=== PATIENT | male | born 1940 | race Caucasian/White ===

== ENCOUNTER 2022-07-08 22:46 | Inpatient (IN) | payer MEDICARE, SELFPAY ==
[2022-07-08 22:19] VITALS: BMI 21.0
[2022-07-08 22:38] VITALS: BP 95/59; PULSE 112; RESP 16; TEMP 36.8; O2SAT 95
--- NOTE | 2022-07-08 22:51 | HP.PCM.HOS_ITS ---
HPI - General General Date of Admission: 07/08/22 Date of Service: 07/08/22 Chief Complaint: Fatigue HPI Narrative LEO RUSSELL, is a 82 M who presented to hospital in [facility] on 07/08/2022 with a chief complaint of fatigue. Patient is currently residing at [facility] which is a custodial facility in the [facility]. 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 He had a mini laparotomy with a jejunostomy tube placed on 03/02/2022 and receives all of his medication and nutrition via PEG at this time. Patient reports he is lost about 50 pounds since he was diagnosed. Patient had been undergoing external beam radiation therapy. He was evaluated by surgery and is not a candidate for surgery. He did receive concurrent chemotherapy with carbo and Taxol. He presented with worsening fatigue and was found to be in A-fib with RVR. Heart rates were approximately 100-130 upon presentation at outside hospital. He reports that his fatigue has been worse over the 2 to 3 days prior to presentation. Family reports he has been slowly becoming more debilitated. I did speak to his children and they reported that they understand that this is not going to be curable and would really prefer that he pursue hospice however they indicate that both he and his mother would like to continue pursuing aggressive therapy at this time. They report he was deemed not to be a surgical candidate. He evidently had a low hemoglobin in May which required transfusion with improvement starting with a hemoglobin of 6.9 and his hemoglobin improved to 8. His last hemoglobin drawn was on June 17, 2022 and found to be 10.3. He has chronic hypotension for which he takes midodrine and typically runs in the 80s to 90 systolic. Labs on presentation showed leukopenia which was chronic at 1.7, acute on chronic anemia with a hemoglobin of 7.1, and normal platelets. His chemistry panel was overall unremarkable other than some mild hyper natremia with a sodium of 147 and hypokalemia with a potassium of 3.1 chest x-ray was unremarkable. An EKG was consistent with A-fib with RVR. He had no known history of A-fib with RVR. Request for transfer was made because they have no cardiology coverage on the weekend at [facility] and the hospital service is not able to manage A- fib without assistance of cardiology per discussion with the emergency department physician. Family also reports that the patient's been having some difficulty urinating. An ultrasound was evidently done at the skilled facility which she resides and family reported a mass was found. Follow-up imaging has been ordered but not yet been performed. The patient does indicate he is not having difficulty urinating. No UA has been done recently as far as I can tell. [facility] Medical History Cancer of distal third of esophagus Cataract Chronic leukopenia Constipation COVID-19 DDD (degenerative disc disease) Dysphagia Esophageal adenocarcinoma Jejunostomy present Pneumonia Home Medications lorazepam 0.5 mg tablet 0.5 mg PO QHS Check with primary doctor 04/14/22 [History Last Taken Unknown] mirtazapine 15 mg tablet 15 mg PO DAILY 04/14/22 [History Last Taken Unknown] ondansetron HCl 8 mg tablet 8 mg PO Q8H 04/14/22 [History Last Taken Unknown] oxycodone 5 mg capsule 5 mg PO Q8H PRN 04/14/22 [History Last Taken Unknown] pantoprazole 40 mg tablet,delayed release 40 mg PO DAILY 04/14/22 [History Last Taken Unknown] polyethylene glycol 3350 17 gram/dose oral powder (Miralax) 4 g PO DAILY 04/14/22 [History Last Taken Unknown] thiamine HCl (vitamin B1) 100 mg tablet 100 mg PO DAILY 04/14/22 [History Last Taken Unknown] melatonin 5 mg capsule 5 mg PO PRN PRN Sleep 04/19/22 [History Last Taken Unknown] famotidine 40 mg/5 mL (8 mg/mL) oral suspension 5 ml feeding tube DAILY Check with primary doctor 07/08/22 [History Last Taken Unknown] lorazepam 0.5 mg tablet 0.5 mg PO PRN PRN Anxiety 07/08/22 [History Last Taken Unknown] metoclopramide HCl 10 mg tablet 10 mg feeding tube 3XD Check with primary doctor 07/08/22 [History Last Taken Unknown] midodrine 5 mg tablet 5 mg feeding tube 3XD Check with primary doctor 07/08/22 [History Last Taken Unknown] tamsulosin 0.4 mg capsule 0.4 mg PO DAILY Check with primary doctor 07/08/22 [History Last Taken Unknown] trazodone 50 mg tablet 5 mg feeding tube QHS Check with primary doctor 07/08/22 [History Last Taken Unknown] Allergy/AdvReac Type Severity Reaction Status Date / Time No Known Allergies Allergy Unverified 06/14/22 09:22 Family History Sister , age 40 Cancer colorectal Father Brain tumor Surgical History H/O laminectomy History of hernia surgery History of partial colectomy Social History (Updated 07/09/22 @ 01:[address] Paula Whitman DO) housing: care home number of children: 3 Smoking Status: Former smoker alcohol intake: never substance use type: does not use ROS Constitutional Constitutional: Reports change in weight, fatigue, malaise and weakness; Denies anorexia, chills, fever(s), night sweats or other Eyes Eyes: Denies blurry vision, change in eye color, change in vision, discharge from eye(s), double vision, erythema, eye pain, loss of vision or other ENT HEENT: Reports abnormal hearing and hearing loss; Denies dysphagia, ear pain, epistaxis, headache(s), nasal congestion, nasal discharge, post nasal drip, sinus pressure, sore throat or other Cardiovascular Cardiovascular: Denies chest pain, claudication, dyspnea on exertion, edema, lightheadedness, orthopnea, palpitations, paroxysmal nocturnal dyspnea, rapid heart rate, syncope or other Respiratory/Chest Respiratory/Chest: Denies cough, dyspnea, excessive phlegm production, hemoptysis, productive cough, shortness of breath at rest, shortness of breath with exertion, wheezing or other Gastrointestinal Gastrointestinal: Reports abdominal pain and other Details: Patient reports epigastric discomfort intermittently Genitourinary Genitourinary: Reports difficulty urinating Musculoskeletal Musculoskeletal: Denies arthralgias, back pain, joint pain, joint stiffness, joint swelling, myalgias, neck pain or other Neurologic Neurologic: Denies abnormal gait, abnormal speech, confusion, disequilibrium, dizziness, focal weakness, headache(s), numbness, paresthesias, seizure-like activity, seizures, syncope, tingling, tremor(s) or other Psychiatric Psychiatric: Reports anxiety and depression; Denies homicidal ideation, suicidal ideation or other Endocrine Endocrinology: Denies change in body appearance, cold intolerance, excessive sweating, heat intolerance, polydipsia, polyuria or other Hematologic/Lymphatic Hematologic/Lymphatic: Denies anemia, easy bleeding, easy bruising, lymphadenopathy or other Allergic/Immunologic Allergic/Immunologic: Denies rhinitis, hives, eczemia, asthma or other Vital Signs Vital Signs Vital Signs: 07/08/22 22:38 Temperature 98.2 F Temperature Source Oral Pulse Rate 112 H Respiratory Rate 16 Blood Pressure 95/59 L Blood Pressure Mean 71 Blood Pressure Source Monitor Blood Pressure Position Semi-Fowlers Pulse Ox 95 Oxygen Delivery Method Room Air Weight Weight: 66.5 kg Body Mass Index (BMI) 21.0 Physical Exam Const alert, oriented x3, no apparent distress and average body habitus; Negative for healthy appearing or well nourished Constitutional Narrative: Elderly white male, lying in bed, daughter and son at bedside, appears comforta ble at this time, nursing at bedside, nontoxic General Appearance: cooperative HEENT normocephalic, head/scalp atraumatic and moist oral mucous membranes HEENT Narrative: Dentition is fair, Mallampati is 2, no thrush, mild hearing loss Eyes PERRL and EOMs intact bilaterally; Negative for conjunctivae normal Eyes Narrative: Conjunctiva are pale bilaterally no scleral icterus Neck no lymphadenopathy and supple Neck Narrative: Trachea midline, no thyroid enlargement Resp normal respiratory effort, no retractions, no use of accessory muscles and clear to auscultation bilaterally Resp Narrative: Diffusely diminished but clear Auscultation: Negative for rales, rhonchi or wheezes Cardio S1 normal heart sound, S2 normal heart sound, no murmurs, no rub, no gallops and no clicks; Negative for regular rate or regular rhythm Cardio Narrative: Mild tachycardia with irregularly irregular rhythm GI normal to inspection, nondistended, normoactive bowel sounds and soft to palpation GI Narrative: Mild tenderness in epigastrium, PEG tube in place with drainage noted under PEG and slight erythema with some mild skin maceration Extremity no clubbing, cyanosis or edema Extremity Narrative: 2+ pedal pulses Skin skin turgor normal, no jaundice, no petechiae and no mottling Skin Narrative: Skin is pale Neuro oriented x3, CN's II-XII intact bilaterally, moves all extremities and no focal motor deficits Neuro Narrative: Severe generalized weakness Speech: speech normal Psych Psych Narrative: Affect is somewhat flat, eye contact is good Assessment & Plan Assessment/Plan (1) Atrial fibrillation with RVR: (2) Fatigue: (3) Acute on chronic anemia: (4) Hypokalemia: PLAN: Plan New onset A-fib with RVR -Check TSH -Check echocardiogram -Cycle cardiac enzymes -Rates seem to be 100-120 -Blood pressures are chronically on the lower side and patient is on midodrine 5 mg 3 times daily will increase to 10 mg 3 times daily -Start metoprolol 25 mg p.o. twice daily -No anticoagulation at this point due to large esophageal mass and possible bleeding with decreased hemoglobin -I believe overall the risk of starting anticoagulation with his large esophageal mask and recent radiation outweighs the benefit for stroke prophylaxis at this point and I discussed this both with the patient and the family Acute on chronic anemia -Unfortunately patient received 1 unit of packed red blood cells prior to transfer so obtaining iron studies at this point would be moot -Cycle hemoglobin -Check guaiac if patient produces stool -Start Protonix 40 mg IV twice daily -N.p.o. and no tube feed--> okay for enteral medications -Consult GI for possible scope to see if he can identify any areas of bleeding -Family does indicate that GI will not be able to traverse the tumor as it is quite significant Hypokalemia -Patient was repleted prior to transfer -Repeat lab in a.m. -Check magnesium level Dysuria/urinary retention -Family reports abnormal ultrasound performed as an outpatient at the nursing facility -Check CT of the abdomen pelvis as this could change goals of care -Check UA Generalized weakness/fatigue -Patient has been becoming weaker over time per family however is acute fatigue over the last 2 to 3 days could be multifactorial related to A-fib with RVR and his acute anemia Stage IIIb distal esophageal adenocarcinoma -Patient following with radiation oncology and medical oncology -Deemed not an appropriate surgical candidate -J tube in place for enteral feeds -N.p.o. for right now until we can ascertain what GI will do with regards to EGD tomorrow -Continue Reglan Chronic hypotension -Continue midodrine but increase to 10 mg 3 times daily with anticipation of some dropping due to use of low-dose metoprolol -Continue to monitor -Systolics appear to run between 80 and 100 chronically Anxiety/depression/insomnia -Continue home medications via PEG History of tobacco abuse -Remote -Encourage ongoing cessation DVT prophylaxis -Contraindicated with concern for bleeding -SCDs CODE STATUS -Full code as verified at the time of admission Charges/Coding Visit Charges Inpatient E&M: 18407 Init Hosp L3
--- NOTE | 2022-07-08 23:36 | ECHOD_ITS ---
Reason For Study: Afib, Aflutter Procedure This was a 2D Doppler, Color Flow transthoracic echocardiogram. Exam performed portable in patient room. Left Ventricle Normal size and thickness. The left ventricular ejection fraction is 60 %. Unable to assess diastolic dysfunction due to arrhythmia. Right Ventricle Normal right ventricle. Atria The left atrium is mildly enlarged. The right atrium is mildly enlarged. Mitral Valve Mild focal mitral valve calcification of the posterior leaflet. Tricuspid Valve Mild tricuspid valve insufficiency. Normal pulmonary artery pressure. Aortic Valve Aortic sclerosis, no stenosis. Mild (1+) aortic valve insufficiency. Pulmonic Valve The pulmonic valve is not well visualized. Great Vessels Normal sized aortic root. Pericardium/Pleural No pericardial effusion. MMode/2D Measurements & Calculations LVIDd: 4.7 cm IVSd: 1.00 cm Ao root diam: 3.2 cm LVIDs: 3.3 cm LVPWd: 1.2 cm RVDd: 3.7 cm FS: 30.9 % LAV(MOD-bp): 58.1 ml LVAd ap4: 21.3 cm2 SV(MOD-sp4): 30.7 ml LAV(MOD-bp) Indexed: 31.7 ml/m2 LVLd ap4: 7.1 cm LAV(MOD-sp2): 44.6 ml EDV(MOD-sp4): 54.2 ml LAV(MOD-sp4): 65.2 ml EDV(sp4-el): 53.7 ml LVAs ap4: 12.7 cm2 LVLs ap4: 6.3 cm ESV(MOD-sp4): 23.5 ml ESV(sp4-el): 21.8 ml EF(MOD-sp4): 56.6 % EF(sp4-el): 59.4 % SV(sp4-el): 31.9 ml LA A4 area: 22.7 cm2 LA dimension(2D): 4.0 cm RA A4 area: 17.3 cm2 Doppler Measurements & Calculations MV E max rj: 98.6 cm/sec Ao V2 max: 133.2 cm/sec LV V1 max: 102.8 cm/sec Ao max P.1 mmHg LV V1 max P.2 mmHg Ao V2 mean: 93.6 cm/sec Ao mean P.0 mmHg Ao V2 VTI: 20.1 cm PA V2 max: 86.8 cm/sec TR max rj: 239.8 cm/sec TR max P.0 mmHg ECHO/Echo Complete Interpretation Summary The left ventricular ejection fraction is 60 %. Unable to assess diastolic dysfunction due to arrhythmia. The left atrium is mildly enlarged. The right atrium is mildly enlarged. Mild tricuspid valve insufficiency. Aortic sclerosis, no stenosis. Mild (1+) aortic valve insufficiency. Ordering Physician: Paula Whitman Performed By: RoofGina RDCS, RVT
[2022-07-08 23:57] VITALS: BP 105/58; PULSE 113; RESP 16; O2SAT 94
[2022-07-09] VITALS (10 sets, daily range): BP systolic 89–126; BP diastolic 57–83; PULSE 105–121; RESP 17–21; TEMP 36.7–36.9; O2SAT 95–100
[2022-07-09] MEDS: 0.9% Saline Lock 10 ML Syringe IV ×3 (00:44→20:46)
[2022-07-09] MEDS: Metoprolol Tartrate 25 MG Tablet GT ×3 (00:44→21:04)
--- NOTE | 2022-07-09 03:12 | PCM.HOSP.N ---
Hospitalist Note The CT of his abdomen/pelvis was performed and showed right lower lobe pulmonary emboli. Suspect this may be the mediation for his A-fib with RVR. I am currently awaiting labs to be drawn here to reevaluate his hemoglobin after receiving 1 unit of packed red blood cells. If hemoglobin has improved I think at this point we should start him on a heparin drip without bolus and evaluate him closely for any signs of worsening bleeding. Plan is for GI to see him tomorrow and hopefully will be able to perform EGD to evaluate for any signs of acute blood loss in the GI tract at the area of his adenocarcinoma. I suspect he has more extensive emboli than identified on the CT of his abdomen pelvis. If he has any further signs of bleeding we will have to stop his heparin and consider an IVC filter. We do not have any capability of placing an IVC filter until Monday. Lovenox would be ideal with his history of malignancy but I need something more rapidly reversible at this time and this is why heparin was chosen over Lovenox. I think overall long-term anticoagulation would be a bad idea and in the end he will likely need an IVC filter placed prior to discharge.
[2022-07-09 03:36] LABS: Hemoglobin 7.7 g/dL (13.0-16.5)
[2022-07-09 04:17] LABS: Troponin-I HS 10 pg/mL (3.0-78.0)
[2022-07-09 04:40] LABS: ALB/GLOB Ratio 0.7 RATIO (0.9-2.4); AST(SGOT) 13 U/L (15-37); Alanine Aminotransfer ALT/SGPT 13 U/L (16-61); Alkaline Phosphatase 93 U/L (45-117); Anion Gap 1 (5-15); BUN 20 mg/dL (7-18); BUN/Creat Ratio 30.8 RATIO (10-20); Calcium,Total 8.2 mg/dL (8.5-10.1); Chloride 113 mmol/L (98-107); Creatinine, Serum 0.65 mg/dL (0.70-1.30); EST Glomerular Filtration Rate 124 mL/min (>60); Est Glom Filt Rate - Afr Amer 151 mL/min (>60); Estimated Creatinine Clearance 51.72 ml/min; Glucose 94 mg/dL (74-106); Magnesium 2.5 mg/dL (1.6-2.6); Phosphorus 2.4 mg/dL (2.5-4.9); Potassium 3.2 mmol/L (3.5-5.1); Sodium Level 146 mmol/L (136-145); Thyroid Stim Hormone (TSH) 0.81 uIU/mL (0.358-3.74); Troponin-I HS 9 pg/mL (3.0-78.0)
[2022-07-09 04:41] LABS: Partial Thromboplast Time 37.7 Seconds (24.1-36.2)
[2022-07-09] MEDS: HEPARIN/D5w 25,000 UNITS 25,000 UNITS/250 ML IV.SOLN. 10 UNITS CONT INF (04:56)
[2022-07-09] MEDS: Metoclopramide 10 MG Tablet GT ×3 (06:50→21:05)
--- NOTE | 2022-07-09 08:07 | PN.HOSP_ITS ---
Reason for Visit Reason for Visit: Diagnoses Anemia, unspecified (07/08/22) Hypokalemia (07/08/22) Unspecified atrial fibrillation (07/08/22) Other fatigue (07/08/22) Subjective Subjective Follow-up for multiple issues including PE, severe anemia, upper GI bleed, A-fib with RVR complicated with esophageal adenocarcinoma. Objective Data Objective Data Vital Signs: Vital Signs Temp Pulse Resp BP Pulse Ox O2 Del Method 98.4 F 106 H 19 H 107/68 98 Room Air 07/09/22 06:57 07/09/22 06:57 07/09/22 06:57 07/09/22 06:57 07/09/22 06:57 07/09/22 06:57 Oxygen Delivery Method Room Air Weight: 146 lb 9.718 oz Body Mass Index (BMI) 21.0 Intake & Output: Intake and Output for Last 24 Hours 07/07/22 07/08/22 07/09/22 23:59 23:59 23:59 Intake Total 100 / 100 110 / 110 Output Total 200 / 200 Balance 100 / 100 -90 / -90 Lab / Micro Data Result Diagrams: 07/09/22 03:14 07/09/22 04:00 Labs: Laboratory Results - last 24 hr 07/09/22 03:14: Hgb 7.7 L 07/09/22 03:14: Troponin I High Sens 10 07/09/22 04:00: Sodium 146 H, Potassium 3.2 L, Chloride 113 H, Carbon Dioxide 32.0, Anion Gap 1 L, BUN 20 H, Creatinine 0.65 L, Estim Creat Clear Calc 51.72, Est GFR (MDRD) Af Amer 151, Est GFR (MDRD) Non-Af 124, BUN/Creatinine Ratio 30.8 H, Glucose 94, Calcium 8.2 L, Phosphorus 2.4 L, Magnesium 2.5, Total Bilirubin 0.60, AST 13 L, ALT 13 L, Alkaline Phosphatase 93, Troponin I High Sens 9, Total Protein 5.0 L, Albumin 2.0 L, Globulin 3.0, Albumin/Globulin Ratio 0.7 L, TSH 0.81 07/09/22 04:00: APTT 37.7 H Radiography Diagnostic Testing: Radiology Impression Abdomen/Pelvis CT 07/09/22 23:36 IMPRESSION: 1. Right lower lobe pulmonary emboli. 2. No solid renal masses are visualized. 3. Apparent multiple left-sided parapelvic renal cysts which appear new since the previous study. 4. Sequela of ventral herniorrhaphy. 5. Nonspecific hepatic nodule. 6. Possible bilateral basilar airspace disease and atelectasis. 7. Enlargement of the prostate. 8. Extensive atherosclerotic calcification of the abdominal aorta. N.B. : The above Results were Read Back by Shahla Hughes MD to HAZEL GODOY MD, and understanding confirmed on 07/09/2022 02:38:36 (ET). Electronically Signed: Shahla Hughes MD at 2:41 EDT , ADDENDUM: 07/09/22 0248 IMPRESSION: 1. Right lower lobe pulmonary emboli. 2. No solid renal masses are visualized. 3. Apparent multiple left-sided parapelvic renal cysts which appear new since the previous study. 4. Sequela of ventral herniorrhaphy. 5. Nonspecific hepatic nodule. 6. Possible bilateral basilar airspace disease and atelectasis. 7. Enlargement of the prostate. 8. Extensive atherosclerotic calcification of the abdominal aorta. N.B. : The above Results were Read Back by Shahla Hughes MD to HAZEL GODOY MD, and understanding confirmed on 07/09/2022 02:38:36 (ET). Electronically Signed: Shahla Hughes MD at 2:41 EDT , Physical Exam Narrative Seen and examined. Patient has chronic weakness and fatigue. Denies chest pain pressure or tightness. Denies dizziness or lightheadedness. Shortness of breath on exertion due to fatigue/loss of weight, decreased functional status. Physical exam General: Alert, Oriented x3, Cooperative, BMI 21.0. Lost 50 pounds since January 2022 HEENT: Atraumatic, PERRLA, EOMI, Normocephalic Oral: No Gingival or Mucosal Lesions/ Ulcerations Neck: Supple, No JVD, Negative Carotid Bruits Lungs: Air entry diminished in bilateral lung bases. No crepitation/rhonchi Cardiovascular: Regular rate, Regular Rhythm, Normal S1, Normal S2, No murmurs Abdomen: Bowel Sounds Present, Soft, Non Tender, Non-Distended : No renal angle tenderness. No suprapubic tenderness. Extremities: No edema, Capillary Refill Less than 3 Seconds Skin: No rashes, No breakdown Musculoskeletal: Moderate muscle atrophy of thighs and upper extremities. Muscle strength 4/5 at major joints. No Tenderness to Palpation of Joints or Extremities Neurological: Cranial nerves II-XII grossly intact, DTR 2+/4 and Symmetrical, Neuro grossly intact Psych/Mental Status: Flat affect. Assessment & Plan Assessment/Plan (1) Atrial fibrillation with RVR: (2) Fatigue: (3) Acute on chronic anemia: (4) Hypokalemia: PLAN: Plan 82-year-old gentleman was directly admitted from [facility] for fatigue and diagnosed A-fib with RVR. 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 New onset A-fib with RVR: Patient is being admitted in PCU. Heart rate is better but is still in 110s. Twelve-lead EKG ordered. Denies palpitation or dizziness.TSH and echo ordered. Serial troponins are negative. Mild hypokalemia and hypophosphatemia. Potassium and phosphate getting replaced. Chronic hypotension on midodrine 5 mg twice daily increased to 10 mg 3 times daily. On metoprolol 25 mg twice daily. On IV heparin drip. Acute on chronic normochromic anemia probably due to chronic GI blood loss: Patient had 1 unit of PRBC transfusion before transfer here. Last hemoglobin 7.7. Patient hemoglobin has been chronically low since, Hb 6.12 May 2021 which required PRBC transfusion. On 06/17, it was about 10 g. FOBT ordered. GI is consulted. Patient on Protonix 40 mill IV every 12 hourly. As per family member's scope probably will not be able to traverse the tumor. Chronic dysuria/urinary retention -Family reports abnormal ultrasound performed as an outpatient at the nursing facility. CT abdomen shows no solid renal masses but multiple left-sided parapelvic renal cysts. Enlargement of prostate. UA with reflex urine culture is ordered. Generalized weakness/ acute on chronic fatigue due to stage IIIb distal esophageal adenocarcinoma: Patient has been chronically fatigued but has become more acute on chronic for last 2 to 3 days. Patient diagnosed with a stage IIIb distal esophageal adenocarcinoma and deemed not candidate for surgery. J-tube in place. Currently n.p.o. for possible EGD today. Patient follows radiation oncology and gets EBRT and medical oncology. Patient had chemotherapy in the past midline. Chronic hypotension -Continue midodrine but increase to 10 mg 3 times daily. Patient baseline BP is systolic 80-90. With midodrine currently it is 107/68 Anxiety/depression/insomnia -Continue home medications via PEG History of tobacco abuse -Remote -Encourage ongoing cessation Total time of the visit including total time spent in counseling or coordination of care, (more than 50% of the total time, spent in obtaining medical information from nurses and other ancillary care providers,explaining to the patient about labs, imaging, diagnosis and management of active complex medical conditions), medical record review, review of labs and imaging is 50 minutes. Laboratory Results 07/09/22 03:14: Hgb 7.7 L 07/09/22 03:14: Troponin I High Sens 10 07/09/22 04:00: Sodium 146 H, Potassium 3.2 L, Chloride 113 H, Carbon Dioxide 32.0, Anion Gap 1 L, BUN 20 H, Creatinine 0.65 L, Estim Creat Clear Calc 51.72, Est GFR (MDRD) Af Amer 151, Est GFR (MDRD) Non-Af 124, BUN/Creatinine Ratio 30.8 H, Glucose 94, Calcium 8.2 L, Phosphorus 2.4 L, Magnesium 2.5, Total Bilirubin 0.60, AST 13 L, ALT 13 L, Alkaline Phosphatase 93, Troponin I High Sens 9, Total Protein 5.0 L, Albumin 2.0 L, Globulin 3.0, Albumin/Globulin Ratio 0.7 L, TSH 0.81 07/09/22 04:00: APTT 37.7 H Clinical Impression(s) from Imaging Studies Abdomen/Pelvis CT 07/09/22 23:36 IMPRESSION: 1. Right lower lobe pulmonary emboli. 2. No solid renal masses are visualized. 3. Apparent multiple left-sided parapelvic renal cysts which appear new since the previous study. 4. Sequela of ventral herniorrhaphy. 5. Nonspecific hepatic nodule. 6. Possible bilateral basilar airspace disease and atelectasis. 7. Enlargement of the prostate. 8. Extensive atherosclerotic calcification of the abdominal aorta. Charges/Coding Visit Charges Inpatient E&M: 19946 Subs Hosp L3
[2022-07-09 08:31] LABS: Bacteria 0 SEEN /hpf (None Seen); Mucous, Urine 0 SEEN /hpf (<or=2+); Red Blood Cells-Urine 0 SEEN /hpf (0-5); Squamous Epithelial Cells - UA 0 SEEN /hpf (0-5); White Blood Cells 0 SEEN /hpf (0-5)
[2022-07-09] MEDS: 0.45% Normal Saline 1,000 ML 75 ML IV ×2 (08:44→22:37)
[2022-07-09] MEDS: Potassium Chloride Oral Soln 20 MEQ/15 ML UDC 40 MEQ GT (08:50)
[2022-07-09] MEDS: Midodrine HCl 5 MG Tablet 10 MG PO ×3 (08:50→17:53)
[2022-07-09 09:00] LABS: Color, Urine Yellow (Yellow); Glucose, Dipstick Normal (Normal); Ketone-Dipstick Negative (Negative); Leukocyte Esterase-Dipstick Negative /ul (Negative); Nitrite-Dipstick Negative (Negative); Occult Blood-Urine Negative /ul (Negative); Protein-Dipstick 30 mg/dl (Negative); Specific Gravity, Urine 1.015 (1.002-1.030); Urine Bilirubin Dipstick Negative (Negative); Urine Clarity Cloudy (Clear); Urine Urobilinogen 4 mg/dl (Normal)
[2022-07-09 09:10] LABS: Absolute Neutrophil Count 1.4 X10^3/uL (2.0-7.7); Basophil% 0.5 % (0-1); Hematocrit 25.5 % (40-54); Hemoglobin 8.3 g/dL (13.0-16.5); Lymphocyte % 20.1 % (19-41); Mean Corp Hgb Conc 32.5 g/dL (32-36); Mean Corpuscular Hgb 31.8 pg (27.0-32.0); Mean Corpuscular Volume 97.7 fL (80-94); Mean Platelet Vol. 10.2 fl (6.2-12.0); Monocyte% 7.5 % (0-10); Neutrophil # 1.35 X10^3/uL (2.7-7.7); Neutrophil % 67.9 % (47-70); POSITIVE DIFFERENTIAL YES; POSITIVE MORPHOLOGY YES; Platelet Count 159 K/mm3 (150-450); RBC Distribution Width CV 20.2 % (11.6-14.6); RBC Distribution Width SD 71.2 fl (35.1-43.9); Red Blood Count 2.61 M/mm3 (4.6-6.2)
[2022-07-09 09:11] LABS: Basophil# 0.01 X10^3/uL; Eosinophil# 0.06 X10^3/uL; Monocyte# 0.15 X10^3/uL; NRBC Flagged by Analyzer 0 % (0-5)
[2022-07-09 09:16] LABS: Amorphous Sediment 2+
[2022-07-09 09:19] LABS: Differential Indicated SCAN CRITERIA MET
[2022-07-09 09:29] LABS: Troponin-I HS 11 pg/mL (3.0-78.0)
[2022-07-09 09:45] LABS: Thyroid Stim Hormone (TSH) 0.96 uIU/mL (0.358-3.74)
[2022-07-09 09:52] LABS: Partial Thromboplast Time 57.1 Seconds (24.1-36.2)
[2022-07-09 10:14] LABS: Differential Comment SCANNED; Reactive Lymphocyte 1+
--- NOTE | 2022-07-09 15:28 | CASEMGMT ---
Social Work Note SW met with patient and patient's family and introduced herself and role as [facility] [employer]. Patient was agreeable to speak with SW with family present. SW inquired about patient's current living arrangements, patient's states he has been staying at [facility] and the plan is for him to return when he is medically ready. is HCPOA. SW explained unit SW will continue to assist with D/C planning. Updates sent to [facility] via [employer]. Plan: [facility] when medically ready GALLO Javier
[2022-07-09 16:09] LABS: Partial Thromboplast Time 62.5 Seconds (24.1-36.2)
[2022-07-09] MEDS: Finasteride 5 MG Tablet GT (17:53)
[2022-07-09] MEDS: LORazepam 0.5 MG Tablet GT (21:05)
[2022-07-09] MEDS: traZODone 50 MG Tablet GT (21:05)
[2022-07-09 21:07] LABS: Partial Thromboplast Time 77.8 Seconds (24.1-36.2)
--- NOTE | 2022-07-09 23:36 | CT_ITS ---
STUDY: CT ABDOMEN AND PELVIS WITH CONTRAST REASON FOR EXAM: Male, 82 years old patient with renal mass. RADIATION DOSAGE (If Supplied By Facility): CTDIvol = ( 43.5 ) mGy, DLP = ( 1315.59 ) mGycm TECHNIQUE: Transaxial images were obtained from the dome of the diaphragm to the symphysis pubis without oral contrast. 100 mL of IV Isovue-300 was administered. Sagittal and coronal images were reconstructed. Individualized dose optimization techniques were used for this CT. COMPARISON: CT abdomen and pelvis dated April 27, 2022. There is prompt excretion of contrast of both kidneys. FINDINGS: There appear to be lobar and segmental pulmonary emboli to RIGHT lower lobe. There is bilateral basilar atelectasis. There is heterogeneous from glass attenuation within the lower lobes that could be secondary to pneumonia. The visualized portions of the heart are within normal limits. There are coronary artery calcifications. There appear to be scattered hepatic cysts with the largest in the left lobe of liver measuring approximately 2.1 cm. There is a focus of decreased attenuation within the right lobe liver on series 2 image 16 that measures approximately 10 mm in size. This is of uncertain etiology. There is a solitary gallstone. There is mild splenomegaly. There are scattered splenic granulomas. There is diffuse atrophy of the pancreas. Normal bilateral adrenal glands. Normal right kidney. There are apparent prominent left-sided parapelvic cysts. Both kidneys excrete contrast promptly. Opacified ureters have normal course and caliber to the urinary bladder. Normal visualized stomach. There is no obvious dilated bowel, ascites or pneumoperitoneum. There is abnormal thickening of the leonard of the colon with multiple scattered diverticula suggesting possible sequela chronic infectious or inflammatory colitis. Patient appears to have had partial right-sided colon resection. There is diffuse atherosclerotic calcification of the abdominal aorta, without a demonstrated aneurysm. Normal inferior vena cava. Normal retroperitoneum. Normal urinary bladder. There is enlargement of the prostate gland. There appears to be mesh material adjacent to the bowel wall probably secondary to ventral herniorrhaphy. Bones appear osteopenic. The patient has had discectomy at L4-5 surgical fusion of the L4 and L5 vertebral segments with interpedicular screws and rods. The remaining imaged thoracic and lumbar vertebral bodies have normal height and alignment. Bony pelvis is within normal limits. CT/Abdomen/Pelvis W IV Cont ONLY IMPRESSION: 1. Right lower lobe pulmonary emboli. 2. No solid renal masses are visualized. 3. Apparent multiple left-sided parapelvic renal cysts which appear new since the previous study. 4. Sequela of ventral herniorrhaphy. 5. Nonspecific hepatic nodule. 6. Possible bilateral basilar airspace disease and atelectasis. 7. Enlargement of the prostate. 8. Extensive atherosclerotic calcification of the abdominal aorta. N.B. : The above Results were Read Back by Shahla Hughes MD to HAZEL GODOY MD, and understanding confirmed on 07/09/2022 02:38:36 (ET). Electronically Signed: Shahla uHghes MD at 2:41 EDT ,
[2022-07-10 04:11] LABS: Partial Thromboplast Time 75.2 Seconds (24.1-36.2)
[2022-07-10] MEDS: HEPARIN/D5w 25,000 UNITS 25,000 UNITS/250 ML IV.SOLN. 10 UNITS CONT INF (04:45)
[2022-07-10 04:50] VITALS: BP 116/60; PULSE 88; RESP 18; TEMP 36.5; O2SAT 96
[2022-07-10 06:00] VITALS: BMI 21.1
[2022-07-10 06:14] LABS: Absolute Lymphocyte Count 0.48 X10^3/uL (0.83-4.51); Absolute Neutrophil Count 1.5 X10^3/uL (2.0-7.7); Basophil# 0.02 X10^3/uL; Basophil% 0.9 % (0-1); Eosinophil# 0.05 X10^3/uL; Eosinophils% 2.2 % (0-5); Hematocrit 24.2 % (40-54); Hemoglobin 7.7 g/dL (13.0-16.5); Lymphocyte # 0.48 X10^3/ul (0.83-4.51); Lymphocyte % 21.4 % (19-41); Mean Corp Hgb Conc 31.8 g/dL (32-36); Mean Corpuscular Hgb 31.2 pg (27.0-32.0); Mean Platelet Vol. 12.1 fl (6.2-12.0); Monocyte# 0.21 X10^3/uL; Monocyte% 9.4 % (0-10); NRBC Flagged by Analyzer 0.9 % (0-5); Neutrophil # 1.46 X10^3/uL (2.7-7.7); Neutrophil % 65.2 % (47-70); POSITIVE DIFFERENTIAL YES; POSITIVE MORPHOLOGY YES; Platelet Count 178 K/mm3 (150-450); RBC Distribution Width SD 70.7 fl (35.1-43.9); Red Blood Count 2.47 M/mm3 (4.6-6.2); White Blood Count 2.2 K/mm3 (4.4-11.0)
[2022-07-10 06:19] LABS: Differential Indicated SCAN CRITERIA MET
[2022-07-10] MEDS: Metoclopramide 10 MG Tablet GT ×3 (06:37→22:30)
[2022-07-10 06:51] LABS: Anisocytosis 2+; Macrocytosis 1+
[2022-07-10 06:52] LABS: Hypochromasia 1+
[2022-07-10 07:25] VITALS: O2SAT 94
--- NOTE | 2022-07-10 07:37 | PN.HOSP_ITS ---
Reason for Visit Reason for Visit: Diagnoses Anemia, unspecified (07/08/22) Hypokalemia (07/08/22) Unspecified atrial fibrillation (07/08/22) Other fatigue (07/08/22) Subjective Subjective Follow-up for multiple acute issues PE, severe anemia, possible GI bleed, A-fib complicated with esophageal adenocarcinoma. Objective Data Objective Data Vital Signs: Vital Signs Temp Pulse Resp BP Pulse Ox O2 Del Method 97.7 F L 88 18 116/60 94 Room Air 07/10/22 04:50 07/10/22 04:50 07/10/22 04:50 07/10/22 04:50 07/10/22 07:25 07/10/22 07:25 Oxygen Delivery Method Room Air Weight: 147 lb 0.773 oz Body Mass Index (BMI) 21.1 Intake & Output: Intake and Output for Last 24 Hours 07/08/22 07/09/22 07/10/22 23:59 23:59 23:59 Intake Total 100 / 100 1861.34 / 1911.34 173.83 / 173.83 Output Total 650 / 650 275 / 275 Balance 100 / 100 1211.34 / 1261.34 -101.17 / -101.17 Medical Nutrition Assessment Dietitian: Malnutrition Criteria Met Start: 07/09/22 12:22 Freq: Status: Active Protocol: Document 07/09/22 12:22 (Rec: 07/09/22 12:22 [id number]) Nutrition Malnutrition Evidence of Malnutrition Exists Yes Malnutrition (severe): Chronic Evidenced By Weight Loss (Severe),Physical Changes (Severe) Intake Problem Inadequate Enteral Nutrition Infusion Etiology related to GI intolerance Signs/Symptoms as evidenced by estimated EN intake meeting <75% of estimated energy needs x 2-3 weeks Status Active Problem Clinical Problem Chronic Disease or Condition Related Malnutrition Etiology severe chronic malnutrition related to inadequate energy intake w/ increased energy needs d/t esophageal adenocarcinoma Signs/Symptoms as evidenced by unitentional wt loss of 73.4#/33% < 1 year; Severe muscle wasting/fat loss evident per physical exam in orbital, temporal, clavicle, acromion areas. Status Active Problem Recommendation Dietitian Recommendations/Changes Chronically NPO; Awaiting GI consult. When medically indicated, recommend via PEG Pivot 1.5 at goal rate of 50mL /hour w/ 150mL H2O flush every 4 hours to provide 1800 calories, 113 g protein, and 1800mL total fluid/day. Would start at 10mL/hour and increase by 10mL/hour every 8- 12 hours as tolerated until goal rate is achieved. Question if difficulty transitioning to bolus feeds at [facility] is r/t fiber content of Isosource, particularly if delayed gastric emptying is suspected (awaiting outpatient emptying study 07/15 per family and SNF notes). At this time, recommending change to Pivot 1.5 d/t lower fiber content. If not tolerated, may also need to consider a lower fat formula (at this facility - Vital HP or Vital AF 1.2) to improve tolerance. Lab / Micro Data Result Diagrams: 07/10/22 03:20 07/10/22 03:20 Labs: Laboratory Results - last 24 hr 07/09/22 00:56: Urine Color Yellow, Urine Clarity Cloudy, Urine pH 8.0, Ur S pecific [place] 1.015, Urine Protein 30 H, Urine Glucose (UA) Normal, Urine K etones Negative, Urine Occult Blood Negative, Urine Nitrite Negative, Urine Bilirubin Negative, Urine Urobilinogen 4 H, Ur Leukocyte Esterase Negative, Urine RBC 0 SEEN, Urine WBC 0 SEEN, Ur Squamous Epith Cells 0 SEEN, Amorphous Sediment 2+, Urine Bacteria 0 SEEN, Urine Mucus 0 SEEN 07/09/22 09:00: WBC 2.0 L, RBC 2.61 L, Hgb 8.3 L, Hct 25.5 L, MCV 97.7 H, MCH 31.8, MCHC 32.5, RDW Std Deviation 71.2 H, RDW Coeff of Tiny 20.2 H, Plt Count 159, MPV 10.2, Immature Gran % (Auto) 1.000 H, Neut % (Auto) 67.9, Lymph % (Auto) 20.1, [place] % (Auto) 7.5, Eos % (Auto) 3.0, Baso % (Auto) 0.5, Absolute Neuts (auto) 1.4 L, Absolute Lymphs (auto) 0.40 L, Nucleated RBC % 0, Differential Comment SCANNED, Diff Path Review May foll, Reactive Lymphocytes 1+ 07/09/22 09:00: Troponin I High Sens 11 07/09/22 09:00: APTT 57.1 H 07/09/22 09:00: TSH 0.96 04/08/23 15:04: APTT 62.5 H 07/09/22 20:49: APTT 77.8 H 07/10/22 03:20: APTT 75.2 H 07/10/22 03:20: WBC 2.2 L, RBC 2.47 L, Hgb 7.7 L, Hct 24.2 L, MCV 98.0 H, MCH 31.2, MCHC 31.8 L, RDW Std Deviation 70.7 H, RDW Coeff of Tiny 20.0 H, Plt Count 178, MPV 12.1 H, Immature Gran % (Auto) 0.900, Neut % (Auto) 65.2, Lymph % (Auto) 21.4, [place] % (Auto) 9.4, Eos % (Auto) 2.2, Baso % (Auto) 0.9, Absolute Neuts (auto) 1.5 L, Absolute Lymphs (auto) 0.48 L, Nucleated RBC % 0.9, Diff Path Review May foll, Hypochromasia 1+, Anisocytosis 2+, Macrocytosis 1+ Radiography Diagnostic Testing: Radiology Impression Echocardiogram 07/08/22 23:36 Interpretation Summary The left ventricular ejection fraction is 60 %. Unable to assess diastolic dysfunction due to arrhythmia. The left atrium is mildly enlarged. The right atrium is mildly enlarged. Mild tricuspid valve insufficiency. Aortic sclerosis, no stenosis. Mild (1+) aortic valve insufficiency. Ordering Physician: Paula Whitman Performed By: Gina Howard, [place], RVT Physical Exam Narrative Seen and examined. A-fib is controlled. Overall patient looks better sitting on the recliner. Hemoglobin also stable. On IV heparin drip. Has weakness and shortness of breath on exertion. Shortness of breath on exertion due to fatigue/loss of weight, decreased functional status. Physical exam General: Alert, Oriented x3, Cooperative, BMI 21.0. Lost 50 pounds since January 2022 HEENT: Atraumatic, PERRLA, EOMI, Normocephalic Oral: Oral mucosa moist. No Gingival or Mucosal Lesions/ Ulcerations Neck: Supple, No JVD, Negative Carotid Bruits Lungs: Air entry diminished in bilateral lung bases. No crepitation/rhonchi. Shortness of breath better. Cardiovascular: Regular rate, Regular Rhythm, Normal S1, Normal S2, No murmurs Abdomen: Bowel Sounds Present, Soft, Non Tender, Non-Distended : No renal angle tenderness. No suprapubic tenderness. Extremities: No edema, Capillary Refill Less than 3 Seconds Skin: No rashes, No breakdown Musculoskeletal: Moderate muscle atrophy of thighs and upper extremities. Muscle strength 4/5 at major joints. No Tenderness to Palpation of Joints or Extremities Neurological: Cranial nerves II-XII grossly intact, DTR 2+/4 and Symmetrical, Neuro grossly intact Psych/Mental Status: Flat affect. Assessment & Plan Assessment/Plan (1) Atrial fibrillation with RVR: (2) Fatigue: (3) Acute on chronic anemia: (4) Hypokalemia: PLAN: Plan 82-year-old gentleman was directly admitted from [facility] for fatigue and diagnosed A-fib with RVR. 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 New onset A-fib with RVR: Patient is being admitted in PCU. Heart rate is better but is still in 110s. Twelve-lead EKG ordered. Denies palpitation or dizziness.TSH and echo ordered. Serial troponins are negative. Mild hypokalemia and hypophosphatemia. Potassium and phosphate getting replaced. Chronic hypotension on midodrine 5 mg twice daily increased to 10 mg 3 times daily. On metoprolol 25 mg twice daily. On IV heparin drip. 07/10: Heart rate controlled but is still A-fib. 2D echo shows bilateral atria enlarged, mild VT. Continue treatment. Acute on chronic normochromic anemia probably due to chronic GI blood loss: Patient had 1 unit of PRBC transfusion before transfer here. Last hemoglobin 7.7. Patient hemoglobin has been chronically low since, Hb 6.12 May 2021 which required PRBC transfusion. On 06/17, it was about 10 g. FOBT ordered. GI is consulted. Patient on Protonix 40 mill IV every 12 hourly. As per family member's scope probably will not be able to traverse the tumor. 07/10: Discussed with GI. Patient's son said that they are not able to traverse the scope therefore probably doing EGD will be futile. Consult requested tomorrow prognosis of esophageal adenocarcinoma and anemia. Right lower lobe pulmonary embolism present on admission: Patient was seen by vascular surgeon Dr. Prado. Options of IVC filter including risk benefits alternatives of anticoagulation discussed with the family, patient's daughter a nd son who lives in [place] discussed. Patient will decide on it. Chronic dysuria/urinary retention seems most likely due to BPH -Family reports abnormal ultrasound performed as an outpatient at the nursing facility. CT abdomen shows no solid renal masses but multiple left-sided parapelvic renal cysts. Enlargement of prostate. UA with reflex urine culture is ordered. 07/10: Flomax was recently prescribed but patient has not taken it. As per pharmacy could not give through PEG tube. Finasteride started. Urine culture pending. Patient is chronically urinary incontinent Generalized weakness/ acute on chronic fatigue due to stage IIIb distal esophageal adenocarcinoma: Patient has been chronically fatigued but has become more acute on chronic for last 2 to 3 days. Patient diagnosed with a stage IIIb distal esophageal adenocarcinoma and deemed not candidate for surgery. J-tube in place. Currently n.p.o. for possible EGD today. Patient follows radiation oncology and gets EBRT and medical oncology. Patient had chemotherapy in the past midline. Chronic hypotension -Continue midodrine but increase to 10 mg 3 times daily. Patient baseline BP is systolic 80-90. With midodrine currently it is 107/68 /90 patient is holding up blood pressure. Anxiety/depression/insomnia -Continue home medications via PEG History of tobacco abuse -Remote -Encourage ongoing cessation Total time of the visit including total time spent in counseling or coordination of care, (more than 50% of the total time, spent in obtaining medical information from nurses and other ancillary care providers,explaining to the patient about labs, imaging, diagnosis and management of active complex medical conditions), discussion with vascular surgeon and GI, clinical course update to family medical record review, review of labs and imaging is 50 minutes. Echocardiogram 07/08/22 23:36 Interpretation Summary The left ventricular ejection fraction is 60 %. Unable to assess diastolic dysfunction due to arrhythmia. The left atrium is mildly enlarged. The right atrium is mildly enlarged. Mild tricuspid valve insufficiency. Aortic sclerosis, no stenosis. Mild (1+) aortic valve insufficiency. Abdomen/Pelvis CT 07/09/22 23:36 IMPRESSION: 1. Right lower lobe pulmonary emboli. 2. No solid renal masses are visualized. 3. Apparent multiple left-sided parapelvic renal cysts which appear new since the previous study. 4. Sequela of ventral herniorrhaphy. 5. Nonspecific hepatic nodule. 6. Possible bilateral basilar airspace disease and atelectasis. 7. Enlargement of the prostate. 8. Extensive atherosclerotic calcification of the abdominal aorta. Laboratory Results 07/09/22 15:04: APTT 62.5 H 07/09/22 20:49: APTT 77.8 H 07/10/22 03:20: APTT 75.2 H 07/10/22 03:20: WBC 2.2 L, RBC 2.47 L, Hgb 7.7 L, Hct 24.2 L, MCV 98.0 H, MCH 31.2, MCHC 31.8 L, RDW Std Deviation 70.7 H, RDW Coeff of Tiny 20.0 H, Plt Count 178, MPV 12.1 H, Immature Gran % (Auto) 0.900, Neut % (Auto) 65.2, Lymph % (Auto) 21.4, [place] % (Auto) 9.4, Eos % (Auto) 2.2, Baso % (Auto) 0.9, Absolute Neuts (auto) 1.5 L, Absolute Lymphs (auto) 0.48 L, Nucleated RBC % 0.9, Diff Path Review May foll, Hypochromasia 1+, Anisocytosis 2+, Macrocytosis 1+ 07/10/22 03:20: Sodium 142, Potassium 3.3 L, Chloride 112 H, Carbon Dioxide 26.0, Anion Gap 4 L, BUN 19 H, Creatinine 0.63 L, Estim Creat Clear Calc 51.88, Est GFR (MDRD) Af Amer 155, Est GFR (MDRD) Non-Af 128, BUN/Creatinine Ratio 30.0 H, Glucose 82, Calcium 8.3 L, Total Bilirubin 0.80, AST 16, ALT 13 L, Alkaline Phosphatase 91, Total Protein 4.8 L, Albumin 1.9 L, Globulin 2.9, Albumin/Globulin Ratio 0.7 L Charges/Coding Visit Charges Inpatient E&M: 59948 Subs Hosp L3
[2022-07-10 08:03] LABS: ALB/GLOB Ratio 0.7 RATIO (0.9-2.4); AST(SGOT) 16 U/L (15-37); Alanine Aminotransfer ALT/SGPT 13 U/L (16-61); Albumin, Serum 1.9 g/dL (3.2-5.0); Alkaline Phosphatase 91 U/L (45-117); Anion Gap 4 (5-15); BUN 19 mg/dL (7-18); Calcium,Total 8.3 mg/dL (8.5-10.1); Chloride 112 mmol/L (98-107); Creatinine, Serum 0.63 mg/dL (0.70-1.30); EST Glomerular Filtration Rate 128 mL/min (>60); Est Glom Filt Rate - Afr Amer 155 mL/min (>60); Estimated Creatinine Clearance 51.88 ml/min; Globulin 2.9 g/dL (2.2-4.2); Glucose 82 mg/dL (74-106); Potassium 3.3 mmol/L (3.5-5.1); Protein, Total 4.8 g/dL (6.4-8.2); Sodium Level 142 mmol/L (136-145)
[2022-07-10] MEDS: Ondansetron 4 MG/2 ML Vial IV (10:08)
[2022-07-10 10:19] VITALS: BP 110/51; PULSE 88; RESP 17; TEMP 36.7; O2SAT 97
--- NOTE | 2022-07-10 10:21 | EX.PCM.CON.S ---
Assessment & Plan Assessment/Plan (1) Pulmonary embolism: PLAN: -pulm emboli, unknown timing but presumed to be inciting factor in new a.fib -acute on chronic anemia; no recent dark/bloody BM -also with leukopenia; both may be effect of recent chemo -no transfusions after arrival and has been on heparin for 24 hours -discussed option of placing IVC filter; risks, benefits, alternatives and role of anticoagulation in VTE treatment -patient would prefer to think about it, hear input from GI, see how is blood counts do on continued anticoagulation -if obvious bleeding occurs that absolutely contraindicates anticoagulation he would be open to further discussion, and filter could be placed over remainder of weekend or after hours -will discuss with family tomorrow HPI Consult Data Date of Consult: 07/10/22 HPI Narrative HPI Narrative: LEO RUSSELL, is a 82 M who presents from outside hospital with increased fatigue, found to be in a.fib with RVR and transferred here. Also with acute on chronic anemia with 1 uPRBC at outside facility; no further transfusions since transfer. He has history of esophageal CA diagnosed in late 2021 and has completed XRT and chemo (last chemo 2 weeks ago). He was deemed too high risk for surgery so no further treatment planned. He denies CP/SOB, leg edema/pain. No dark stools or blood per rectum CT a/p incidentally showed RLL pulmonary emboli and he was started on heparin drip overnight 07/08-07/09. No dark or bloody stools since heparin started. [facility] Medical History Cancer of distal third of esophagus Cataract Chronic leukopenia Constipation COVID-19 DDD (degenerative disc disease) Dysphagia Esophageal adenocarcinoma Jejunostomy present Pneumonia Home Medications lorazepam 0.5 mg tablet 0.5 mg feeding tube QHS Check with primary doctor 04/14/22 [History Last Taken Unknown] ondansetron HCl 8 mg tablet 8 mg feeding tube Q8H nausea 04/14/22 [History Last Taken Unknown] oxycodone 5 mg capsule 5 mg feeding tube Q6H moderate/severe pain 04/14/22 [History Last Taken Unknown] melatonin 5 mg capsule 5 mg feeding tube QHS Check with primary doctor 04/19/22 [History Last Taken Unknown] famotidine 40 mg/5 mL (8 mg/mL) oral suspension 5 ml feeding tube DAILY Check with primary doctor 07/08/22 [History Last Taken Unknown] lorazepam 0.5 mg tablet 0.5 mg feeding tube Q12H PRN PRN Anxiety 07/08/22 [History Last Taken Unknown] metoclopramide HCl 10 mg tablet 10 mg feeding tube 3XD Check with primary doctor 07/08/22 [History Last Taken Unknown] midodrine 5 mg tablet 5 mg feeding tube 3XD Check with primary doctor 07/08/22 [History Last Taken Unknown] tamsulosin 0.4 mg capsule 0.4 mg PO DAILY Check with primary doctor 07/08/22 [History Last Taken Unknown] trazodone 50 mg tablet 50 mg feeding tube QHS Check with primary doctor 07/08/22 [History Last Taken Unknown] acetaminophen 325 mg tablet (Tylenol) 650 mg feeding tube Q4H PRN mild pain/temp >100 07/09/22 [History Last Taken Unknown] Allergy/AdvReac Type Severity Reaction Status Date / Time No Known Allergies Allergy Unverified 06/14/22 09:22 Family History Sister , age 40 Cancer colorectal Father Brain tumor Surgical History H/O laminectomy History of hernia surgery History of partial colectomy Social History (Updated 07/09/22 @ 01:[address] Paula Whitman DO) housing: halfway number of children: 3 Smoking Status: Former smoker alcohol intake: never substance use type: does not use ROS Constitutional Constitutional: Reports chills, fatigue and weakness; Denies fever(s) or frequent falls Eyes Eyes: Denies blind spots, change in vision or loss of vision ENT HEENT: Denies bleeding gums, hoarseness or sore throat Cardiovascular Cardiovascular: Reports cold extremities, fatigue and irregular heart rhythm; Denies abdominal pain, bluish discoloration of hand/feet, chest pain, chest pain with activity, claudication, cyanosis, dyspnea on exertion, erythema on extremities, leg edema, leg ulcers, numbness in extremities or weakness in extremities Respiratory/Chest Respiratory/Chest: Denies cough, excessive phlegm production, shortness of breath at rest, shortness of breath with exertion or wheezing Gastrointestinal Gastrointestinal: Reports nausea; Denies anorexia, change in stool character, constipation, diarrhea, melena or rectal bleeding Genitourinary Genitourinary: Denies dysuria or hematuria Integumentary Integumentary: Reports other Details: ; Denies erythema, non-healing lesions or wounds Neurologic Neurologic: Denies abnormal speech, focal weakness, headache(s), loss of vision, numbness, paresthesias or sensory deficit Hematologic/Lymphatic Hematologic/Lymphatic: Denies easy bleeding, easy bruising or lymphadenopathy Physical Exam Const alert, oriented x3, no apparent distress and healthy appearing General Appearance: cooperative; Negative for combative or lethargic Orientation / Consciousness: awake Exam Limitations: no limitations HEENT Head and Scalp: normocephalic and atraumatic Eyes EOMs intact bilaterally General Eye: normal appearance of both eyes Neck full ROM, no lymphadenopathy and thyroid normal General: trachea midline; Negative for lymphadenopathy Thyroid: thyroid normal Lymph Lymphatic: Negative for no lymphadenopathy noted Resp normal respiratory effort and no use of accessory muscles Effort and Inspection: Negative for labored, stridor or audible wheezes Cardio regular rate and regular rhythm Peripheral Pulses: radial pulses present and popliteal pulses present; Negative for posterior tibial pulses present or dorsalis pedis pulses present GI non-tender and non-distended; Negative for hepatosplenomegaly Back/Spine Cervical Spine: cervical ROM normal Extremity full ROM, normal capillary refill and no clubbing, cyanosis or edema Skin no rashes or lesions noted and no wounds Neuro oriented x3, CN's II-XII intact bilaterally, no focal motor deficits and no sensory deficits noted Psych thought process normal, cooperative, affect normal, speech normal and activity/motor behavior normal Medical Records Data Medical Nutrition Assessment Dietitian: Malnutrition Criteria Met Start: 07/09/22 12:22 Freq: Status: Active Protocol: Document 07/09/22 12:22 (Rec: 07/09/22 12:22 [id number]) Nutrition Malnutrition Evidence of Malnutrition Exists Yes Malnutrition (severe): Chronic Evidenced By Weight Loss (Severe),Physical Changes (Severe) Intake Problem Inadequate Enteral Nutrition Infusion Etiology related to GI intolerance Signs/Symptoms as evidenced by estimated EN intake meeting <75% of estimated energy needs x 2-3 weeks Status Active Problem Clinical Problem Chronic Disease or Condition Related Malnutrition Etiology severe chronic malnutrition related to inadequate energy intake w/ increased energy needs d/t esophageal adenocarcinoma Signs/Symptoms as evidenced by unitentional wt loss of 73.4#/33% < 1 year; Severe muscle wasting/fat loss evident per physical exam in orbital, temporal, clavicle, acromion areas. Status Active Problem Recommendation Dietitian Recommendations/Changes Chronically NPO; Awaiting GI consult. When medically indicated, recommend via PEG Pivot 1.5 at goal rate of 50mL /hour w/ 150mL H2O flush every 4 hours to provide 1800 calories, 113 g protein, and 1800mL total fluid/day. Would start at 10mL/hour and increase by 10mL/hour every 8- 12 hours as tolerated until goal rate is achieved. Question if difficulty transitioning to bolus feeds at SNF is r/t fiber content of Isosource, particularly if delayed gastric emptying is suspected (awaiting outpatient emptying study 07/15 per family and SNF notes). At this time, recommending change to Pivot 1.5 d/t lower fiber content. If not tolerated, may also need to consider a lower fat formula (at this facility - Vital HP or Vital AF 1.2) to improve tolerance. Lab / Micro Data Result Diagrams: 07/10/22 03:20 07/10/22 03:20 Labs: Laboratory Results - last 24 hr 07/09/22 15:04: APTT 62.5 H 07/09/22 20:49: APTT 77.8 H 07/10/22 03:20: APTT 75.2 H 07/10/22 03:20: WBC 2.2 L, RBC 2.47 L, Hgb 7.7 L, Hct 24.2 L, MCV 98.0 H, MCH 31.2, MCHC 31.8 L, RDW Std Deviation 70.7 H, RDW Coeff of Tiny 20.0 H, Plt Count 178, MPV 12.1 H, Immature Gran % (Auto) 0.900, Neut % (Auto) 65.2, Lymph % (Auto) 21.4, [place] % (Auto) 9.4, Eos % (Auto) 2.2, Baso % (Auto) 0.9, Absolute Neuts (auto) 1.5 L, Absolute Lymphs (auto) 0.48 L, Nucleated RBC % 0.9, Diff Path Review May foll, Hypochromasia 1+, Anisocytosis 2+, Macrocytosis 1+ 07/10/22 03:20: Sodium 142, Potassium 3.3 L, Chloride 112 H, Carbon Dioxide 26.0, Anion Gap 4 L, BUN 19 H, Creatinine 0.63 L, Estim Creat Clear Calc 51.88, Est GFR (MDRD) Af Amer 155, Est GFR (MDRD) Non-Af 128, BUN/Creatinine Ratio 30.0 H, Glucose 82, Calcium 8.3 L, Total Bilirubin 0.80, AST 16, ALT 13 L, Alkaline Phosphatase 91, Total Protein 4.8 L, Albumin 1.9 L, Globulin 2.9, Albumin/Globulin Ratio 0.7 L Radiology Impression Echocardiogram 07/08/22 23:36 Interpretation Summary The left ventricular ejection fraction is 60 %. Unable to assess diastolic dysfunction due to arrhythmia. The left atrium is mildly enlarged. The right atrium is mildly enlarged. Mild tricuspid valve insufficiency. Aortic sclerosis, no stenosis. Mild (1+) aortic valve insufficiency. Ordering Physician: Paula Whitman Performed By: Gina Howard, [place], RVT Charges/Coding Visit Charges Inpatient E&M: 23400 Init Hosp L3
[2022-07-10 10:51] VITALS: BP 110/51; PULSE 88
[2022-07-10] MEDS: Metoprolol Tartrate 25 MG Tablet GT ×2 (10:51→22:26)
[2022-07-10] MEDS: Finasteride 5 MG Tablet GT (10:52)
[2022-07-10] MEDS: Midodrine HCl 5 MG Tablet 10 MG PO ×3 (10:52→22:25)
[2022-07-10 16:19] VITALS: BP 103/60; PULSE 80; RESP 16; TEMP 36.7; O2SAT 98
[2022-07-10] MEDS: Potassium Chloride 10mEq/100mL 10 MEQ/100 ML IV.SOLN. 100 MEQ IV BOLUS (20:40)
[2022-07-10] MEDS: traZODone 50 MG Tablet GT (22:25)
[2022-07-10 22:26] VITALS: PULSE 87
[2022-07-10] MEDS: LORazepam 0.5 MG Tablet GT (22:30)
[2022-07-11] VITALS (14 sets, daily range): BP systolic 97–129; BP diastolic 48–85; PULSE 71–90; RESP 18; TEMP 36.6–37.2; O2SAT 95–99; BMI 20.8
[2022-07-11] MEDS: HEPARIN/D5w 25,000 UNITS 25,000 UNITS/250 ML IV.SOLN. 10 UNITS CONT INF (06:09)
[2022-07-11] MEDS: Metoclopramide 10 MG Tablet GT ×2 (06:09→20:46)
[2022-07-11 06:17] LABS: Absolute Lymphocyte Count 0.39 X10^3/uL (0.83-4.51); Absolute Neutrophil Count 1.4 X10^3/uL (2.0-7.7); Basophil# 0.01 X10^3/uL; Basophil% 0.5 % (0-1); Eosinophil# 0.06 X10^3/uL; Eosinophils% 2.8 % (0-5); Hematocrit 24.3 % (40-54); Hemoglobin 7.8 g/dL (13.0-16.5); Lymphocyte # 0.39 X10^3/ul (0.83-4.51); Mean Corp Hgb Conc 32.1 g/dL (32-36); Mean Corpuscular Hgb 31.1 pg (27.0-32.0); Mean Corpuscular Volume 96.8 fL (80-94); Mean Platelet Vol. 10.8 fl (6.2-12.0); Monocyte# 0.26 X10^3/uL; NRBC Flagged by Analyzer 0 % (0-5); Neutrophil # 1.42 X10^3/uL (2.7-7.7); Neutrophil % 65.3 % (47-70); POSITIVE DIFFERENTIAL YES; POSITIVE MORPHOLOGY YES; Platelet Count 171 K/mm3 (150-450); RBC Distribution Width CV 19.5 % (11.6-14.6); RBC Distribution Width SD 67.7 fl (35.1-43.9); Red Blood Count 2.51 M/mm3 (4.6-6.2); White Blood Count 2.2 K/mm3 (4.4-11.0)
[2022-07-11 06:42] LABS: Differential Indicated SCAN CRITERIA MET
[2022-07-11 06:43] LABS: Anion Gap 5 (5-15); BUN 16 mg/dL (7-18); BUN/Creat Ratio 24.5 RATIO (10-20); Calcium,Total 8.3 mg/dL (8.5-10.1); Chloride 109 mmol/L (98-107); Creatinine, Serum 0.65 mg/dL (0.70-1.30); EST Glomerular Filtration Rate 124 mL/min (>60); Est Glom Filt Rate - Afr Amer 150 mL/min (>60); Estimated Creatinine Clearance 51.88 ml/min; Glucose 91 mg/dL (74-106); Potassium 3.2 mmol/L (3.5-5.1); Sodium Level 140 mmol/L (136-145)
[2022-07-11 06:48] LABS: Phosphorus 2.3 mg/dL (2.5-4.9)
[2022-07-11 07:03] LABS: Partial Thromboplast Time 43.4 Seconds (24.1-36.2)
[2022-07-11] MEDS: Heparin Injection (Vial) 5,000 UNIT/ML VIAL IV (07:43)
[2022-07-11 08:49] LABS: Differential Comment SCANNED; Poikilocytosis 2+
[2022-07-11 08:50] LABS: Macrocytosis 1+; Microcytosis 1+
--- NOTE | 2022-07-11 10:00 | PN.HOSP_ITS ---
Reason for Visit Reason for Visit: Diagnoses Anemia, unspecified (07/08/22) Hypokalemia (07/08/22) Other pulmonary embolism without acute cor pulmonale (07/08/22) Unspecified atrial fibrillation (07/08/22) Other fatigue (07/08/22) Follow-up for multiple acute issues including severe anemia, PE, A-fib and severe malnutrition with dysphagia and esophageal adenocarcinoma Objective Data Objective Data Vital Signs: Vital Signs Temp Pulse Resp BP Pulse Ox O2 Del Method 98.9 F 75 18 97/54 L 96 Room Air 07/11/22 04:00 07/11/22 04:00 07/11/22 04:00 07/11/22 04:00 07/11/22 07:51 07/11/22 07:51 Oxygen Delivery Method Room Air Weight: 145 lb 4.554 oz Body Mass Index (BMI) 20.8 Intake & Output: Intake and Output for Last 24 Hours 07/09/22 07/10/22 07/11/22 23:59 23:59 23:59 Intake Total 1861.34 / 1911.34 1683.83 / 1683.83 1309.83 / 1309.83 Output Total 650 / 650 1325 / 1325 Balance 1211.34 / 1261.34 358.83 / 358.83 1309.83 / 1309.83 Medical Nutrition Assessment Dietitian: Malnutrition Criteria Met Start: 07/09/22 12:22 Freq: Status: Active Protocol: Document 07/09/22 12:22 (Rec: 07/09/22 12:22 [id number]) Nutrition Malnutrition Evidence of Malnutrition Exists Yes Malnutrition (severe): Chronic Evidenced By Weight Loss (Severe),Physical Changes (Severe) Intake Problem Inadequate Enteral Nutrition Infusion Etiology related to GI intolerance Signs/Symptoms as evidenced by estimated EN intake meeting <75% of estimated energy needs x 2-3 weeks Status Active Problem Clinical Problem Chronic Disease or Condition Related Malnutrition Etiology severe chronic malnutrition related to inadequate energy intake w/ increased energy needs d/t esophageal adenocarcinoma Signs/Symptoms as evidenced by unitentional wt loss of 73.4#/33% < 1 year; Severe muscle wasting/fat loss evident per physical exam in orbital, temporal, clavicle, acromion areas. Status Active Problem Recommendation Dietitian Recommendations/Changes Chronically NPO; Awaiting GI consult. When medically indicated, recommend via PEG Pivot 1.5 at goal rate of 50mL /hour w/ 150mL H2O flush every 4 hours to provide 1800 calories, 113 g protein, and 1800mL total fluid/day. Would start at 10mL/hour and increase by 10mL/hour every 8- 12 hours as tolerated until goal rate is achieved. Question if difficulty transitioning to bolus feeds at [facility] is r/t fiber content of Isosource, particularly if delayed gastric emptying is suspected (awaiting outpatient emptying study 07/15 per family and SNF notes). At this time, recommending change to Pivot 1.5 d/t lower fiber content. If not tolerated, may also need to consider a lower fat formula (at this facility - Vital HP or Vital AF 1.2) to improve tolerance. Lab / Micro Data Result Diagrams: 07/11/22 05:53 07/11/22 05:53 Labs: Laboratory Results - last 24 hr 07/11/22 05:53: WBC 2.2 L, RBC 2.51 L, Hgb 7.8 L, Hct 24.3 L, MCV 96.8 H, MCH 31.1, MCHC 32.1, RDW Std Deviation 67.7 H, RDW Coeff of Tiny 19.5 H, Plt Count 171, MPV 10.8, Immature Gran % (Auto) 1.400 H, Neut % (Auto) 65.3, Lymph % (Auto) 18.0 L, [place] % (Auto) 12.0 H, Eos % (Auto) 2.8, Baso % (Auto) 0.5, Absolute Neuts (auto) 1.4 L, Absolute Lymphs (auto) 0.39 L, Nucleated RBC % 0, Differential Comment SCANNED, Diff Path Review May foll, Poikilocytosis 2+, Microcytosis 1+, Macrocytosis 1+ 07/11/22 05:53: Sodium 140, Potassium 3.2 L, Chloride 109 H, Carbon Dioxide 26.0, Anion Gap 5, BUN 16, Creatinine 0.65 L, Estim Creat Clear Calc 51.88, Est GFR (MDRD) Af Amer 150, Est GFR (MDRD) Non-Af 124, BUN/Creatinine Ratio 24.5 H, Glucose 91, Calcium 8.3 L, Magnesium 2.0 07/11/22 05:53: Phosphorus 2.3 L 07/11/22 05:53: APTT 43.4 H Micro: Microbiology 07/09/22 00:56 Urine, Clean Catch Urine Culture - Final Culture exhibits no growth. Physical Exam Narrative Seen and examined. A-fib is controlled. Slight improvement in hemoglobin. Shortness of breath is better. Dyspnea on mild exertion. Physical exam General: Alert, Oriented x3, Cooperative, BMI 21.0. Lost 50 pounds since January 2022 HEENT: Atraumatic, PERRLA, EOMI, Normocephalic Oral: Oral mucosa moist. No Gingival or Mucosal Lesions/ Ulcerations Neck: Supple, No JVD, Negative Carotid Bruits Lungs: Air entry diminished in bilateral lung bases. No crepitation/rhonchi. Shortness of breath better. [place]. Cardiovascular: Regular rate, Regular Rhythm, Normal S1, Normal S2, No murmurs Abdomen: Bowel Sounds Present, Soft, Non Tender, Non-Distended : No renal angle tenderness. No suprapubic tenderness. Extremities: No edema, Capillary Refill Less than 3 Seconds Skin: No rashes, No breakdown Musculoskeletal: Moderate muscle atrophy of thighs and upper extremities. Muscle strength 4/5 at major joints. No Tenderness to Palpation of Joints or Extremities Neurological: Cranial nerves II-XII grossly intact, DTR 2+/4 and Symmetrical, Neuro grossly intact Psych/Mental Status: Flat affect. Assessment & Plan Assessment/Plan (1) Atrial fibrillation with RVR: (2) Fatigue: (3) Acute on chronic anemia: (4) Hypokalemia: PLAN: Plan 82-year-old gentleman was directly admitted from [facility] for fatigue and diagnosed A-fib with RVR. 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 New onset A-fib with RVR: Patient is being admitted in PCU. Heart rate is better but is still in 110s. Twelve-lead EKG ordered. Denies palpitation or dizziness.TSH and echo ordered. Serial troponins are negative. Mild hypokalemia and hypophosphatemia. Potassium and phosphate getting replaced. Chronic hypotension on midodrine 5 mg twice daily increased to 10 mg 3 times daily. On metoprolol 25 mg twice daily. On IV heparin drip. 07/10: Heart rate controlled but is still A-fib. 2D echo shows bilateral atria enlarged, mild NH. Continue treatment. 07/11: Heart rate is controlled. Acute on chronic normochromic anemia probably due to chronic GI blood loss: Patient had 1 unit of PRBC transfusion before transfer here. Last hemoglobin 7.7. Patient hemoglobin has been chronically low since, Hb 6.12 May 2021 which required PRBC transfusion. On 06/17, it was about 10 g. FOBT ordered. GI is consulted. Patient on Protonix 40 mill IV every 12 hourly. As per family member's scope probably will not be able to traverse the tumor. 07/10: Discussed with GI. Patient's son said that they are not able to traverse the scope therefore probably doing EGD will be futile. Consult requested tomorrow prognosis of esophageal adenocarcinoma and anemia. 07/11: Discussed with the GI. Hemoglobin is stable. Right lower lobe pulmonary embolism present on admission: Patient was seen by vascular surgeon Dr. Prado. Options of IVC filter including risk benefits alternatives of anticoagulation discussed with the family, patient's daughter and son who lives in [place] discussed. Patient will decide on it. 07/11: Had detailed discussion with the patient and family and after talking with the vascular surgeon they agreed for IVC filter. Discussed with vascular surgeon. Discontinued heparin drip prior to the procedure. We will start Xarelto 10 mg daily at 6 hours after the procedure about 8 PM. Chronic dysuria/urinary retention seems most likely due to BPH -Family reports abnormal ultrasound performed as an outpatient at the nursing facility. CT abdomen shows no solid renal masses but multiple left-sided parapelvic renal cysts. Enlargement of prostate. UA with reflex urine culture is ordered. 07/10: Flomax was recently prescribed but patient has not taken it. As per pharmacy could not give through PEG tube. Finasteride started. Urine culture pending. Patient is chronically urinary incontinent Generalized weakness/ acute on chronic fatigue due to stage IIIb distal eso phageal adenocarcinoma: Patient has been chronically fatigued but has become more acute on chronic for last 2 to 3 days. Patient diagnosed with a stage IIIb distal esophageal adenocarcinoma and deemed not candidate for surgery. J-tube in place. Currently n.p.o. for possible EGD today. Patient follows radiation oncology and gets EBRT and medical oncology. Patient had chemotherapy in the past midline. Chronic hypotension -Continue midodrine but increase to 10 mg 3 times daily. Patient baseline BP is systolic 80-90. With midodrine currently it is 107/68 patient is holding up blood pressure. Anxiety/depression/insomnia -Continue home medications via PEG History of tobacco abuse -Remote -Encourage ongoing cessation Total time of the visit including total time spent in counseling or coordination of care, (more than 50% of the total time, spent in obtaining medical information from nurses and other ancillary care providers,explaining to the patient about labs, imaging, diagnosis and management of active complex medical conditions), discussion with vascular surgeon and GI, clinical course update to family medical record review, review of labs and imaging is 50 minutes. Echocardiogram 07/08/22 23:36 Interpretation Summary The left ventricular ejection fraction is 60 %. Unable to assess diastolic dysfunction due to arrhythmia. The left atrium is mildly enlarged. The right atrium is mildly enlarged. Mild tricuspid valve insufficiency. Aortic sclerosis, no stenosis. Mild (1+) aortic valve insufficiency. Abdomen/Pelvis CT 07/09/22 23:36 IMPRESSION: 1. Right lower lobe pulmonary emboli. 2. No solid renal masses are visualized. 3. Apparent multiple left-sided parapelvic renal cysts which appear new since the previous study. 4. Sequela of ventral herniorrhaphy. 5. Nonspecific hepatic nodule. 6. Possible bilateral basilar airspace disease and atelectasis. 7. Enlargement of the prostate. 8. Extensive atherosclerotic calcification of the abdominal aorta. Laboratory Results 07/09/22 15:04: APTT 62.5 H 07/09/22 20:49: APTT 77.8 H 07/10/22 03:20: APTT 75.2 H 07/10/22 03:20: WBC 2.2 L, RBC 2.47 L, Hgb 7.7 L, Hct 24.2 L, MCV 98.0 H, MCH 31.2, MCHC 31.8 L, RDW Std Deviation 70.7 H, RDW Coeff of Tiny 20.0 H, Plt Count 178, MPV 12.1 H, Immature Gran % (Auto) 0.900, Neut % (Auto) 65.2, Lymph % (Auto) 21.4, [place] % (Auto) 9.4, Eos % (Auto) 2.2, Baso % (Auto) 0.9, Absolute Neuts (auto) 1.5 L, Absolute Lymphs (auto) 0.48 L, Nucleated RBC % 0.9, Diff Path Review August foll, Hypochromasia 1+, Anisocytosis 2+, Macrocytosis 1+ 07/10/22 03:20: Sodium 142, Potassium 3.3 L, Chloride 112 H, Carbon Dioxide 26.0, Anion Gap 4 L, BUN 19 H, Creatinine 0.63 L, Estim Creat Clear Calc 51.88, Est GFR (MDRD) Af Amer 155, Est GFR (MDRD) Non-Af 128, BUN/Creatinine Ratio 30.0 H, Glucose 82, Calcium 8.3 L, Total Bilirubin 0.80, AST 16, ALT 13 L, Alkaline Phosphatase 91, Total Protein 4.8 L, Albumin 1.9 L, Globulin 2.9, Albumin/Globulin Ratio 0.7 L Charges/Coding Visit Charges Inpatient E&M: 31241 Subs Hosp L2
[2022-07-11] MEDS: Metoprolol Tartrate 25 MG Tablet GT ×2 (10:14→20:46)
[2022-07-11] MEDS: Midodrine HCl 5 MG Tablet 10 MG PO ×2 (10:14→16:29)
[2022-07-11] MEDS: Finasteride 5 MG Tablet GT (10:14)
--- NOTE | 2022-07-11 10:53 | PN.SURG_ITS ---
Subjective Subjective Felling better today. Has discussed with family; daughter here visiting today to discuss Objective Data Objective Data A&O x 3, NAD Irregular rhythm, rate controlled Resp non-labored no edema Vital Signs: Vital Signs Temp Pulse Resp BP Pulse Ox O2 Del Method 98.6 F 79 18 108/57 L 99 Room Air 07/11/22 10:00 07/11/22 10:14 07/11/22 10:00 07/11/22 10:14 07/11/22 10:00 07/11/22 10:00 Oxygen Delivery Method Room Air Weight: 145 lb 4.554 oz Body Mass Index (BMI) 20.8 Intake & Output: Intake and Output for Last 24 Hours 07/09/22 07/10/22 07/11/22 23:59 23:59 23:59 Intake Total 1861.34 / 1911.34 1683.83 / 1683.83 1309.83 / 1309.83 Output Total 650 / 650 1325 / 1325 Balance 1211.34 / 1261.34 358.83 / 358.83 1309.83 / 1309.83 Medical Nutrition Assessment Dietitian: Malnutrition Criteria Met Start: 07/09/22 12:22 Freq: Status: Active Protocol: Document 07/09/22 12:22 (Rec: 07/09/22 12:22 [id number]) Nutrition Malnutrition Evidence of Malnutrition Exists Yes Malnutrition (severe): Chronic Evidenced By Weight Loss (Severe),Physical Changes (Severe) Intake Problem Inadequate Enteral Nutrition Infusion Etiology related to GI intolerance Signs/Symptoms as evidenced by estimated EN intake meeting <75% of estimated energy needs x 2-3 weeks Status Active Problem Clinical Problem Chronic Disease or Condition Related Malnutrition Etiology severe chronic malnutrition related to inadequate energy intake w/ increased energy needs d/t esophageal adenocarcinoma Signs/Symptoms as evidenced by unitentional wt loss of 73.4#/33% < 1 year; Severe muscle wasting/fat loss evident per physical exam in orbital, temporal, clavicle, acromion areas. Status Active Problem Recommendation Dietitian Recommendations/Changes Chronically NPO; Awaiting GI consult. When medically indicated, recommend via PEG Pivot 1.5 at goal rate of 50mL /hour w/ 150mL H2O flush every 4 hours to provide 1800 calories, 113 g protein, and 1800mL total fluid/day. Would start at 10mL/hour and increase by 10mL/hour every 8- 12 hours as tolerated until goal rate is achieved. Question if difficulty transitioning to bolus feeds at SNF is r/t fiber content of Isosource, particularly if delayed gastric emptying is suspected (awaiting outpatient emptying study 07/15 per family and SNF notes). At this time, recommending change to Pivot 1.5 d/t lower fiber content. If not tolerated, may also need to consider a lower fat formula (at this facility - Vital HP or Vital AF 1.2) to improve tolerance. Lab / Micro Data Result Diagrams: 07/11/22 05:53 07/11/22 05:53 Labs: Laboratory Results - last 24 hr 07/11/22 05:53: WBC 2.2 L, RBC 2.51 L, Hgb 7.8 L, Hct 24.3 L, MCV 96.8 H, MCH 31.1, MCHC 32.1, RDW Std Deviation 67.7 H, RDW Coeff of Tiny 19.5 H, Plt Count 171, MPV 10.8, Immature Gran % (Auto) 1.400 H, Neut % (Auto) 65.3, Lymph % (Auto) 18.0 L, [place] % (Auto) 12.0 H, Eos % (Auto) 2.8, Baso % (Auto) 0.5, Absolu te Neuts (auto) 1.4 L, Absolute Lymphs (auto) 0.39 L, Nucleated RBC % 0, Differential Comment SCANNED, Diff Path Review May foll, Poikilocytosis 2+, Microcytosis 1+, Macrocytosis 1+ 07/11/22 05:53: Sodium 140, Potassium 3.2 L, Chloride 109 H, Carbon Dioxide 26.0, Anion Gap 5, BUN 16, Creatinine 0.65 L, Estim Creat Clear Calc 51.88, Est GFR (MDRD) Af Amer 150, Est GFR (MDRD) Non-Af 124, BUN/Creatinine Ratio 24.5 H, Glucose 91, Calcium 8.3 L, Magnesium 2.0 07/11/22 05:53: Phosphorus 2.3 L 07/11/22 05:53: APTT 43.4 H Micro: Microbiology 07/09/22 00:56 Urine, Clean Catch Urine Culture - Final Culture exhibits no growth. Assessment & Plan Assessment/Plan (1) Pulmonary embolism: PLAN: -hgb stable, no signs of ongoing bleeding or further need for transfusion -discussed with patient and daughter indications/risks/benefits of filter -given high risk for bleeding with esophageal cancer they agree to IVC filter -may benefit from Xarelto 10 prophylaxis dose at DC if it will go through PEG -plan filter later today
[2022-07-11 13:36] LABS: Partial Thromboplast Time 60.7 Seconds (24.1-36.2)
--- NOTE | 2022-07-11 14:11 | PCM.OPRPT ---
Report of Operation Date of Procedure: 07/11/22 Pre-Operative Diagnosis: PE Post-Operative Diagnosis: same Surgery/Procedure Performed:: insertion IVC filter Surgeon: Bora Prado Type of Anesthesia: Local and Sedation,Conscious Estimated Blood Loss (mL): 5 Description of Procedure: HPI: Patient is an 82-year-old male with incidentally found pulmonary embolism and acute on chronic anemia in the setting of unresected esophageal cancer. Given his upper GI malignancy and risk for potential bleeding with anticoagulation is felt to be appropriate for IVC filter placement. Description of procedure: Upon obtaining informed consent and verification correct patient procedure site patient was taken to the [facility] where he was positioned prepped and draped in usual sterile fashion. Timeout was then performed conscious sedation ministered with Versed and fentanyl. Skin overlying the right common femoral vein was anesthetized 1% lidocaine and under ultrasound guidance the vessel was accessed in retrograde fashion with micropuncture needle wire. This was then exchanged out for micropuncture sheath through which an injection iliofemoral and venogram was performed which confirmed patent right iliac system. Through the micropuncture sheath a J-wire was advanced and the micropuncture sheath exchanged for the delivery sheath for a Bard Sebastian filter which was then advanced in the position in the inferior vena cava. A venacavogram was performed which confirmed patent normal caliber vena cava and confirmed the position of the renal veins. The sheath was then positioned below the lowest renal vein and a Bard Ely IVC filter advanced in the position and deployed. Completion venacavogram confirmed satisfactory positioning with no significant tilt. The sheath was then withdrawn and manual pressure held for 5 minutes after which satisfactory stasis was noted. Patient was then returned to the PCU.
--- NOTE | 2022-07-11 15:09 | CASEMGMT ---
Social Work Message to [facility] via [facility] requesting precert be started, if not yet started for this patient. Plan: Return to [facility] [place], skilled level of care one precert is obtained. -ALEKSANDER Butler
--- NOTE | 2022-07-11 15:33 | CASEMGMT ---
FRANCISCO CM: Clinical updates sent via [facility] to [facility]. Kenton Nayak RN CM
[2022-07-11 15:34] LABS: Pathologist Review Reviewed
[2022-07-11 15:34] LABS: Pathologist Review Reviewed
--- NOTE | 2022-07-11 16:06 | CASEMGMT ---
FRANCISCO WELCH: Call received from Crystal at [facility]. Updates received. Will send for precert on this date. Kenton Nayak RN CM
[2022-07-11] MEDS: Tamsulosin HCl 0.4 MG Capsule PO (16:29)
--- NOTE | 2022-07-11 17:08 | CON.PCM.GI_ITS ---
HPI Consult Data Date of Consult: 07/12/22 HPI Narrative HPI Narrative: LEO RUSSELL, is a 82 M who presented with worsening fatigue and was found to be in A-fib with RVR.? 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 The hospitalist had a conversation with the family on admission and it was reported that they understand that this is not going to be curable and would really prefer that he pursue hospice however they indicate that both he and his mother would like to continue pursuing aggressive therapy at this time. He was started on anticoagulation and rate control for his atrial fibrillation with RVR. However his hemoglobin has been slightly decreasing. He received blood transfusions. He is being seen by vascular surgery for possible IVC ghada ter replacement due to the fact that he has a new pulmonary emboli. They would like me to see him due to his decreasing hemoglobin. [facility] Medical History Cancer of distal third of esophagus Cataract Chronic leukopenia Constipation COVID-19 DDD (degenerative disc disease) Dysphagia Esophageal adenocarcinoma Jejunostomy present Pneumonia Home Medications lorazepam 0.5 mg tablet 0.5 mg feeding tube QHS Check with primary doctor 04/14/22 [History Last Taken Unknown] ondansetron HCl 8 mg tablet 8 mg feeding tube Q8H nausea 04/14/22 [History Last Taken Unknown] oxycodone 5 mg capsule 5 mg feeding tube Q6H moderate/severe pain 04/14/22 [History Last Taken Unknown] melatonin 5 mg capsule 5 mg feeding tube QHS Check with primary doctor 04/19/22 [History Last Taken Unknown] famotidine 40 mg/5 mL (8 mg/mL) oral suspension 5 ml feeding tube DAILY Check with primary doctor 07/08/22 [History Last Taken Unknown] lorazepam 0.5 mg tablet 0.5 mg feeding tube Q12H PRN PRN Anxiety 07/08/22 [History Last Taken Unknown] metoclopramide HCl 10 mg tablet 10 mg feeding tube 3XD Check with primary doctor 07/08/22 [History Last Taken Unknown] midodrine 5 mg tablet 5 mg feeding tube 3XD Check with primary doctor 07/08/22 [History Last Taken Unknown] tamsulosin 0.4 mg capsule 0.4 mg PO DAILY Check with primary doctor 07/08/22 [History Last Taken Unknown] trazodone 50 mg tablet 50 mg feeding tube QHS Check with primary doctor 07/08/22 [History Last Taken Unknown] acetaminophen 325 mg tablet (Tylenol) 650 mg feeding tube Q4H PRN mild pain/temp >100 07/09/22 [History Last Taken Unknown] Allergy/AdvReac Type Severity Reaction Status Date / Time No Known Allergies Allergy Unverified 06/14/22 09:22 Family History Sister , age 40 Cancer colorectal Father Brain tumor Surgical History H/O laminectomy History of hernia surgery History of partial colectomy Social History (Updated 07/09/22 @ 01:[address] Paula Whitman DO) housing: [facility] number of children: 3 Smoking Status: Former smoker alcohol intake: never substance use type: does not use ROS Constitutional Constitutional: Reports chills, fatigue and weakness; Denies fever(s) or frequent falls Eyes Eyes: Denies blind spots, change in vision or loss of vision ENT HEENT: Denies bleeding gums, hoarseness or sore throat Cardiovascular Cardiovascular: Reports cold extremities, fatigue and irregular heart rhythm; Denies abdominal pain, bluish discoloration of hand/feet, chest pain, chest pain with activity, claudication, cyanosis, dyspnea on exertion, erythema on extremities, leg edema, leg ulcers, numbness in extremities or weakness in extremities Respiratory/Chest Respiratory/Chest: Denies cough, excessive phlegm production, shortness of breath at rest, shortness of breath with exertion or wheezing Gastrointestinal Gastrointestinal: Reports nausea; Denies anorexia, change in stool character, constipation, diarrhea, melena or rectal bleeding Genitourinary Genitourinary: Denies dysuria or hematuria Integumentary Integumentary: Reports other Details: ; Denies erythema, non-healing lesions or wounds Neurologic Neurologic: Denies abnormal speech, focal weakness, headache(s), loss of vision, numbness, paresthesias or sensory deficit Hematologic/Lymphatic Hematologic/Lymphatic: Denies easy bleeding, easy bruising or lymphadenopathy Physical Exam Narrative Seen and examined. Physical exam General: Alert, Oriented x3, Cooperative, BMI 21.0. Lost 50 pounds since January 2022 HEENT: Atraumatic, PERRLA, EOMI, Normocephalic Oral: Oral mucosa moist. No Gingival or Mucosal Lesions/ Ulcerations Neck: Supple, No JVD, Negative Carotid Bruits Lungs: Air entry diminished in bilateral lung bases. No crepitation/rhonchi. Shortness of breath better. Cardiovascular: Regular rate, Regular Rhythm, Normal S1, Normal S2, No murmurs Abdomen: Bowel Sounds Present, Soft, Non Tender, Non-Distended : No renal angle tenderness. No suprapubic tenderness. Extremities: No edema, Capillary Refill Less than 3 Seconds Skin: No rashes, No breakdown Musculoskeletal: Moderate muscle atrophy of thighs and upper extremities. Muscle strength 4/5 at major joints. No Tenderness to Palpation of Joints or Extremities Neurological: Cranial nerves II-XII grossly intact, DTR 2+/4 and Symmetrical, Neuro grossly intact Psych/Mental Status: Flat affect. Medical Records Data Medical Nutrition Assessment Dietitian: Malnutrition Criteria Met Start: 07/09/22 12:22 Freq: Status: Active Protocol: Document 07/09/22 12:22 (Rec: 07/09/22 12:22 [id number]) Nutrition Malnutrition Evidence of Malnutrition Exists Yes Malnutrition (severe): Chronic Evidenced By Weight Loss (Severe),Physical Changes (Severe) Intake Problem Inadequate Enteral Nutrition Infusion Etiology related to GI intolerance Signs/Symptoms as evidenced by estimated EN intake meeting <75% of estimated energy needs x 2-3 weeks Status Active Problem Clinical Problem Chronic Disease or Condition Related Malnutrition Etiology severe chronic malnutrition related to inadequate energy intake w/ increased energy needs d/t esophageal adenocarcinoma Signs/Symptoms as evidenced by unitentional wt loss of 73.4#/33% < 1 year; Severe muscle wasting/fat loss evident per physical exam in orbital, temporal, clavicle, acromion areas. Status Active Problem Recommendation Dietitian Recommendations/Changes Chronically NPO; Awaiting GI consult. When medically indicated, recommend via PEG Pivot 1.5 at goal rate of 50mL /hour w/ 150mL H2O flush every 4 hours to provide 1800 calories, 113 g protein, and 1800mL total fluid/day. Would start at 10mL/hour and increase by 10mL/hour every 8- 12 hours as tolerated until goal rate is achieved. Question if difficulty transitioning to bolus feeds at SNF is r/t fiber content of Isosource, particularly if delayed gastric emptying is suspected (awaiting outpatient emptying study 07/15 per family and SNF notes). At this time, recommending change to Pivot 1.5 d/t lower fiber content. If not tolerated, may also need to consider a lower fat formula (at this facility - Vital HP or Vital AF 1.2) to improve tolerance. Lab / Micro Data Result Diagrams: 07/12/22 06:12 07/12/22 06:12 Labs: Laboratory Results - last 24 hr 07/09/22 09:00: Diff Path Review Reviewed 07/10/22 03:20: Diff Path Review Reviewed 07/11/22 05:53: WBC 2.2 L, RBC 2.51 L, Hgb 7.8 L, Hct 24.3 L, MCV 96.8 H, MCH 31.1, MCHC 32.1, RDW Std Deviation 67.7 H, RDW Coeff of Tiny 19.5 H, Plt Count 171, MPV 10.8, Immature Gran % (Auto) 1.400 H, Neut % (Auto) 65.3, Lymph % (Auto) 18.0 L, Whit[place] % (Auto) 12.0 H, Eos % (Auto) 2.8, Baso % (Auto) 0.5, Absolute Neuts (auto) 1.4 L, Absolute Lymphs (auto) 0.39 L, Nucleated RBC % 0, Differential Comment SCANNED, Diff Path Review May foll, Poikilocytosis 2+, Microcytosis 1+, Macrocytosis 1+ 07/11/22 05:53: Sodium 140, Potassium 3.2 L, Chloride 109 H, Carbon Dioxide 26.0, Anion Gap 5, BUN 16, Creatinine 0.65 L, Estim Creat Clear Calc 51.88, Est GFR (MDRD) Af Amer 150, Est GFR (MDRD) Non-Af 124, BUN/Creatinine Ratio 24.5 H, Glucose 91, Calcium 8.3 L, Magnesium 2.0 07/11/22 05:53: Phosphorus 2.3 L 07/11/22 05:53: APTT 43.4 H 07/11/22 13:20: APTT 60.7 H Micro: Microbiology 07/09/22 00:56 Urine, Clean Catch Urine Culture - Final Culture exhibits no growth. Assessment & Plan Assessment/Plan (1) Atrial fibrillation with RVR: (2) Fatigue: (3) Acute on chronic anemia: (4) Hypokalemia: PLAN: Plan New onset A-fib with RVR -No anticoagulation at this point due to large esophageal mass and possible bleeding with decreased hemoglobin Acute on chronic anemia -His hemoglobin seems to be stable at 7.8 after transfusion of packed red blood cells -Cycle hemoglobin -continue Protonix 40 mg IV twice daily -N.p.o. and no tube feed--> okay for enteral medications Stage IIIb distal esophageal adenocarcinoma -Patient following with radiation oncology and medical oncology -Deemed not an appropriate surgical candidate -J tube in place for enteral feeds -It is likely that he is having some bleeding at the site of his esophageal tu mor. Since his hemoglobin is stable I think the risk versus benefit to perform a upper endoscopy and to him would not benefit him at this time. If his hemoglobin decreases then there has to be decision whether the the patient and the patient's family want to take the risk of him undergoing endoscopic procedure that may do harm. Charges/Coding Visit Charges Inpatient E&M: 53833 Init Hosp L3
[2022-07-11] MEDS: Pivot 1.5 Cal 1,000 ML BOTTLE 200 ML GT (17:55)
--- NOTE | 2022-07-11 18:10 | CASEMGMT ---
Social Work Patient's daughter visiting patient and requested to speak with mental health social worker. Presented to patient's room and introduced self. Daughter asked to speak with this show card writer outside of the room. Daughter shares that patient has been at [facility], private pay. Daughter reports the patient's also resides at [facility], but on another unit as the has dementia. There are 3 children, and all live out of town. Concern present that patient needs more care, and are interested in hospice care to supplement the care patient receives at the already. Daughter shares that patient has advanced cancer and recently finished treatment. Daughter reports has been in conversations with [facility] in [place], and the family would like this service for patient at the nursing facility. Daughter reports patient's has discussed with the patient and patient is reportedly on board with hospice. Educated daughter that hospice can follow at the nursing facility, and that room and board will be private pay. This show card writer met with patient, , and daughter. Gently discussed and acknowledged health care concerns patient has been experiencing, and hospice options for more support and symptom management at the nursing facility. Patient reports this has been talked about and is in agreement. Discussed that [facility] was chosen. Patient reports this is fine, though also thinks a lot of [facility], but will go with the hospice located in [place]. List of hospices not provided based on family ready working with a hospice prior to meeting with the mental health social worker. Notified Dr. Brooks of patient and family's wishes. Doctor gave order for hospice consult. Sent hospice referral to [facility] via [facility]. Plan: Follow up with [facility] on 07.12.22 to ensure referral received. When medically stable, return to [facility], private pay, and anticipate addition of hospice care. -ALEKSANDER Butler
[2022-07-11] MEDS: traZODone 50 MG Tablet GT (20:46)
[2022-07-11] MEDS: Rivaroxaban 10 MG Tablet PO (20:46)
[2022-07-11] MEDS: 0.9% Saline Lock 10 ML Syringe IV (20:46)
[2022-07-11] MEDS: LORazepam 0.5 MG Tablet GT (20:55)
[2022-07-12 03:00] VITALS: BP 97/54; PULSE 83; RESP 18; TEMP 36.5; O2SAT 98
[2022-07-12] MEDS: Ondansetron 4 MG/2 ML Vial IV (03:01)
[2022-07-12] MEDS: 0.9% Saline Lock 10 ML Syringe IV (03:01)
[2022-07-12] MEDS: Metoclopramide 10 MG Tablet GT ×2 (05:28→13:26)
[2022-07-12 06:00] VITALS: BMI 20.9
[2022-07-12 06:33] LABS: Absolute Lymphocyte Count 0.34 X10^3/uL (0.83-4.51); Absolute Neutrophil Count 1.6 X10^3/uL (2.0-7.7); Basophil# 0.01 X10^3/uL; Basophil% 0.4 % (0-1); Eosinophil# 0.05 X10^3/uL; Eosinophils% 2.2 % (0-5); Hematocrit 26.3 % (40-54); Hemoglobin 8.3 g/dL (13.0-16.5); Lymphocyte # 0.34 X10^3/ul (0.83-4.51); Lymphocyte % 14.8 % (19-41); Mean Corp Hgb Conc 31.6 g/dL (32-36); Mean Corpuscular Hgb 30.7 pg (27.0-32.0); Mean Corpuscular Volume 97.4 fL (80-94); Mean Platelet Vol. 10.5 fl (6.2-12.0); Monocyte# 0.23 X10^3/uL; NRBC Flagged by Analyzer 0 % (0-5); Neutrophil # 1.62 X10^3/uL (2.7-7.7); Neutrophil % 70.9 % (47-70); POSITIVE DIFFERENTIAL YES; POSITIVE MORPHOLOGY YES; Platelet Count 169 K/mm3 (150-450); RBC Distribution Width CV 19.6 % (11.6-14.6); RBC Distribution Width SD 69.6 fl (35.1-43.9); White Blood Count 2.3 K/mm3 (4.4-11.0)
[2022-07-12 07:03] LABS: Anion Gap 2 (5-15); BUN 14 mg/dL (7-18); BUN/Creat Ratio 20.1 RATIO (10-20); Calcium,Total 8.5 mg/dL (8.5-10.1); Chloride 110 mmol/L (98-107); EST Glomerular Filtration Rate 115 mL/min (>60); Est Glom Filt Rate - Afr Amer 139 mL/min (>60); Estimated Creatinine Clearance 51.41 ml/min; Glucose 95 mg/dL (74-106); Magnesium 2.2 mg/dL (1.6-2.6); Potassium 3.3 mmol/L (3.5-5.1); Sodium Level 140 mmol/L (136-145)
[2022-07-12 07:06] LABS: Phosphorus 2.7 mg/dL (2.5-4.9)
[2022-07-12 07:16] LABS: Differential Indicated SCAN CRITERIA MET
[2022-07-12 07:26] LABS: Anisocytosis 3+; Differential Comment SCANNED
[2022-07-12 08:39] VITALS: BP 113/70; PULSE 84
[2022-07-12] MEDS: Metoprolol Tartrate 25 MG Tablet GT (08:39)
[2022-07-12] MEDS: Midodrine HCl 5 MG Tablet 10 MG PO ×2 (08:39→13:26)
[2022-07-12] MEDS: Finasteride 5 MG Tablet GT (08:40)
[2022-07-12] MEDS: Pivot 1.5 Cal 1,000 ML BOTTLE 200 ML GT ×2 (08:41→13:27)
[2022-07-12 09:00] VITALS: BP 118/57; PULSE 86; RESP 18; TEMP 36.8; O2SAT 100
--- NOTE | 2022-07-12 09:01 | CASEMGMT ---
SW received a voice mail from [facility] with [facility] from 4-10 at 16:30. Family contacted [facility] today regarding Hospice for patient. [facility] asked that referral packet be sent over. Gisselle HOLDER
--- NOTE | 2022-07-12 09:02 | CASEMGMT ---
VINICIUS called [facility] with [facility] back this am. VINICIUS let Clover know that a referral was sent via [facility]. Clover said she will check with the office and thanked VINICIUS for calling her back. Gisselle HOLDER
[2022-07-12 09:21] VITALS: O2SAT 100
--- NOTE | 2022-07-12 09:44 | PCM.PN.HOSP ---
Reason for Visit Reason for Visit: Diagnoses Anemia, unspecified (07/08/22) Hypokalemia (07/08/22) Other pulmonary embolism without acute cor pulmonale (07/08/22) Unspecified atrial fibrillation (07/08/22) Other fatigue (07/08/22) Objective Data Objective Data Vital Signs: Vital Signs Temp Pulse Resp BP Pulse Ox O2 Del Method 97.7 F L 84 18 113/70 98 Room Air 07/12/22 03:00 07/12/22 08:39 07/12/22 03:00 07/12/22 08:39 07/12/22 03:00 07/12/22 03:00 Oxygen Delivery Method Room Air Weight: 145 lb 11.609 oz Body Mass Index (BMI) 20.9 Intake & Output: Intake and Output for Last 24 Hours 07/10/22 07/11/22 07/12/22 23:59 23:59 23:59 Intake Total 1683.83 / 1683.83 3273.00 / 3448.00 285 / 285 Output Total 1325 / 1325 1000 / 1300 720 / 720 Balance 358.83 / 358.83 2273.00 / 2148.00 -435 / -435 Medical Nutrition Assessment Dietitian: Malnutrition Criteria Met Start: 07/09/22 12:22 Freq: Status: Active Protocol: Document 07/09/22 12:22 (Rec: 07/09/22 12:22 [id number]) Nutrition Malnutrition Evidence of Malnutrition Exists Yes Malnutrition (severe): Chronic Evidenced By Weight Loss (Severe),Physical Changes (Severe) Intake Problem Inadequate Enteral Nutrition Infusion Etiology related to GI intolerance Signs/Symptoms as evidenced by estimated EN intake meeting <75% of estimated energy needs x 2-3 weeks Status Active Problem Clinical Problem Chronic Disease or Condition Related Malnutrition Etiology severe chronic malnutrition related to inadequate energy intake w/ increased energy needs d/t esophageal adenocarcinoma Signs/Symptoms as evidenced by unitentional wt loss of 73.4#/33% < 1 year; Severe muscle wasting/fat loss evident per physical exam in orbital, temporal, clavicle, acromion areas. Status Active Problem Recommendation Dietitian Recommendations/Changes Chronically NPO; Awaiting GI consult. When medically indicated, recommend via PEG Pivot 1.5 at goal rate of 50mL /hour w/ 150mL H2O flush every 4 hours to provide 1800 calories, 113 g protein, and 1800mL total fluid/day. Would start at 10mL/hour and increase by 10mL/hour every 8- 12 hours as tolerated until goal rate is achieved. Question if difficulty transitioning to bolus feeds at [facility] is r/t fiber content of Isosource, particularly if delayed gastric emptying is suspected (awaiting outpatient emptying study 07/15 per family and SNF notes). At this time, recommending change to Pivot 1.5 d/t lower fiber content. If not tolerated, may also need to consider a lower fat formula (at this facility - Vital HP or Vital AF 1.2) to improve tolerance. Lab / Micro Data Result Diagrams: 07/12/22 06:12 07/12/22 06:12 Labs: Laboratory Results - last 24 hr 07/09/22 09:00: Diff Path Review Reviewed 07/10/22 03:20: Diff Path Review Reviewed 07/11/22 13:20: APTT 60.7 H 07/12/22 06:12: WBC 2.3 L, RBC 2.70 L, Hgb 8.3 L, Hct 26.3 L, MCV 97.4 H, MCH 30.7, MCHC 31.6 L, RDW Std Deviation 69.6 H, RDW Coeff of Tiny 19.6 H, Plt Count 169, MPV 10.5, Immature Gran % (Auto) 1.700 H, Neut % (Auto) 70.9 H, Lymph % (Auto) 14.8 L, [place] % (Auto) 10.0, Eos % (Auto) 2.2, Baso % (Auto) 0.4, Absolute Neuts (auto) 1.6 L, Absolute Lymphs (auto) 0.34 L, Nucleated RBC % 0, Differential Comment SCANNED, Diff Path Review May foll, Anisocytosis 3+ 07/12/22 06:12: Sodium 140, Potassium 3.3 L, Chloride 110 H, Carbon Dioxide 28.0, Anion Gap 2 L, BUN 14, Creatinine 0.70, Estim Creat Clear Calc 51.41, Est GFR (MDRD) Af Amer 139, Est GFR (MDRD) Non-Af 115, BUN/Creatinine Ratio 20.1 H, Glucose 95, Calcium 8.5, Magnesium 2.2 07/12/22 06:12: Phosphorus 2.7 Micro: Microbiology 07/09/22 00:56 Urine, Clean Catch Urine Culture - Final Culture exhibits no growth. Physical Exam Narrative Seen and examined. A-fib is controlled. Slight improvement in hemoglobin. Shortness of breath is better. Dyspnea on mild exertion. Physical exam General: Alert, Oriented x3, Cooperative, BMI 21.0. Lost 50 pounds since January 2022 HEENT: Atraumatic, PERRLA, EOMI, Normocephalic Oral: Oral mucosa moist. No Gingival or Mucosal Lesions/ Ulcerations Neck: Supple, No JVD, Negative Carotid Bruits Lungs: Air entry diminished in bilateral lung bases. No crepitation/rhonchi. Shortness of breath better. [place]. Cardiovascular: Regular rate, Regular Rhythm, Normal S1, Normal S2, No murmurs Abdomen: Bowel Sounds Present, Soft, Non Tender, Non-Distended : No renal angle tenderness. No suprapubic tenderness. Extremities: No edema, Capillary Refill Less than 3 Seconds Skin: No rashes, No breakdown Musculoskeletal: Moderate muscle atrophy of thighs and upper extremities. Muscle strength 4/5 at major joints. No Tenderness to Palpation of Joints or Extremities Neurological: Cranial nerves II-XII grossly intact, DTR 2+/4 and Symmetrical, Neuro grossly intact Psych/Mental Status: Flat affect. Assessment & Plan Assessment/Plan (1) Atrial fibrillation with RVR: (2) Fatigue: (3) Acute on chronic anemia: (4) Hypokalemia: PLAN: Plan 82-year-old gentleman was directly admitted from [facility] for fatigue and diagnosed A-fib with RVR. 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 New onset A-fib with RVR: Patient is being admitted in PCU. Heart rate is better but is still in 110s. Twelve-lead EKG ordered. Denies palpitation or dizziness.TSH and echo ordered. Serial troponins are negative. Mild hypokalemia and hypophosphatemia. Potassium and phosphate getting replaced. Chronic hypotension on midodrine 5 mg twice daily increased to 10 mg 3 times daily. On metoprolol 25 mg twice daily. On IV heparin drip. 07/10: Heart rate controlled but is still A-fib. 2D echo shows bilateral atria enlarged, mild NE. Continue treatment. 07/11: Heart rate is controlled. Acute on chronic normochromic anemia probably due to chronic GI blood loss: Patient had 1 unit of PRBC transfusion before transfer here. Last hemoglobin 7.7. Patient hemoglobin has been chronically low since, Hb 6.12 May 2021 which required PRBC transfusion. On 06/17, it was about 10 g. FOBT ordered. GI is consulted. Patient on Protonix 40 mill IV every 12 hourly. As per family member's scope probably will not be able to traverse the tumor. 07/10: Discussed with GI. Patient's son said that they are not able to traverse the scope therefore probably doing EGD will be futile. Consult requested tomorrow prognosis of esophageal adenocarcinoma and anemia. 07/11: Discussed with the GI. Hemoglobin is stable. Right lower lobe pulmonary embolism present on admission: Patient was seen by vascular surgeon Dr. Prado. Options of IVC filter including risk benefits alternatives of anticoagulation discussed with the family, patient's daughter and son who lives in [place] discussed. Patient will decide on it. 07/11: Had detailed discussion with the patient and family and after talking with the vascular surgeon they agreed for IVC filter. Discussed with vascular surgeon. Discontinued heparin drip prior to the procedure. We will start Xarelto 10 mg daily at 6 hours after the procedure about 8 PM. 07/12: Right groin no hematoma or bruise. No tenderness. Dressing is dry. Chronic dysuria/urinary retention seems most likely due to BPH -Family reports abnormal ultrasound performed as an outpatient at the nursing facility. CT abdomen shows no solid renal masses but multiple left-sided parapelvic renal cysts. Enlargement of prostate. UA with reflex urine culture is ordered. 07/10: Flomax was recently prescribed but patient has not taken it. As per pharmacy could not give through PEG tube. Finasteride started. Urine culture pending. Patient is chronically urinary incontinent Generalized weakness/ acute on chronic fatigue due to stage IIIb distal esophageal adenocarcinoma: Patient has been chronically fatigued but has become more acute on chronic for last 2 to 3 days. Patient diagnosed with a stage IIIb distal esophageal adenocarcinoma and deemed not candidate for surgery. J-tube in place. Currently n.p.o. for possible EGD today. Patient follows radiation oncology and gets EBRT and medical oncology. Patient had chemotherapy in the past midline. 07/12: Patient patient wanted pleasant feeding or water for better quality of life. Dr. Noland and I agree. He is able to swallow most of saliva. Barium esophagram ordered. Bolus tube feed was started yesterday slowly 25 mL 5 times a day. Patient is tolerating well. Increase to 50 mill 5 times a day. Chronic hypotension -Continue midodrine but increase to 10 mg 3 times daily. Patient baseline BP is systolic 80-90. With midodrine currently it is 107/68 patient is holding up blood pressure. Anxiety/depression/insomnia -Continue home medications via PEG History of tobacco abuse -Remote -Encourage ongoing cessation Total time of the visit including total time spent in counseling or coordination of care, (more than 50% of the total time, spent in obtaining medical information from nurses and other ancillary care providers,explaining to the patient about labs, imaging, diagnosis and management of active complex medical conditions), discussion with vascular surgeon and GI, clinical course update to family medical record review, review of labs and imaging is 50 minutes. Echocardiogram 07/08/22 23:36 Interpretation Summary The left ventricular ejection fraction is 60 %. Unable to assess diastolic dysfunction due to arrhythmia. The left atrium is mildly enlarged. The right atrium is mildly enlarged. Mild tricuspid valve insufficiency. Aortic sclerosis, no stenosis. Mild (1+) aortic valve insufficiency. Abdomen/Pelvis CT 07/09/22 23:36 IMPRESSION: 1. Right lower lobe pulmonary emboli. 2. No solid renal masses are visualized. 3. Apparent multiple left-sided parapelvic renal cysts which appear new since the previous study. 4. Sequela of ventral herniorrhaphy. 5. Nonspecific hepatic nodule. 6. Possible bilateral basilar airspace disease and atelectasis. 7. Enlargement of the prostate. 8. Extensive atherosclerotic calcification of the abdominal aorta. Laboratory Results 07/09/22 15:04: APTT 62.5 H 07/09/22 20:49: APTT 77.8 H 07/10/22 03:20: APTT 75.2 H 07/10/22 03:20: WBC 2.2 L, RBC 2.47 L, Hgb 7.7 L, Hct 24.2 L, MCV 98.0 H, MCH 31.2, MCHC 31.8 L, RDW Std Deviation 70.7 H, RDW Coeff of Tiny 20.0 H, Plt Count 178, MPV 12.1 H, Immature Gran % (Auto) 0.900, Neut % (Auto) 65.2, Lymph % (Auto) 21.4, [place] % (Auto) 9.4, Eos % (Auto) 2.2, Baso % (Auto) 0.9, Absolute Neuts (auto) 1.5 L, Absolute Lymphs (auto) 0.48 L, Nucleated RBC % 0.9, Diff Path Review August, Hypochromasia 1+, Anisocytosis 2+, Macrocytosis 1+ 07/10/22 03:20: Sodium 142, Potassium 3.3 L, Chloride 112 H, Carbon Dioxide 26.0, Anion Gap 4 L, BUN 19 H, Creatinine 0.63 L, Estim Creat Clear Calc 51.88, Est GFR (MDRD) Af Amer 155, Est GFR (MDRD) Non-Af 128, BUN/Creatinine Ratio 30.0 H, Glucose 82, Calcium 8.3 L, Total Bilirubin 0.80, AST 16, ALT 13 L, Alkaline Phosphatase 91, Total Protein 4.8 L, Albumin 1.9 L, Globulin 2.9, Albumin/Globulin Ratio 0.7 L
[2022-07-12 09:51] VITALS: O2SAT 100
--- NOTE | 2022-07-12 10:10 | PCM.TXEXTCAR ---
Diet Diet Order/Speech Therapy: 07/11/22 17:56 Diet: Tube Feeding Is pt able to select menu?: No Diet Comments: Start with 50 mL bolus. 5 times daily Routine Orders/Code Status Suppository Type: Dulcolax 10mg Suppository Frequency: Daily PRN Code Status: DNRCC Wound(s) COCCYX: Wound Type: Pressure Injury right groin: Wound Type: Puncture Therapies Weight Bearing: Weight bearing as tolerated Extremity Affected:: Bilateral Lower Physical Therapy: Eval and Treat Occupational Therapy: Eval and Treat Speech Therapy: Eval and Treat Problem/Diagnosis (1) Atrial fibrillation with RVR: Status: Acute Code(s): I48.91 - Unspecified atrial fibrillation (2) Fatigue: Status: Acute Code(s): R53.83 - Other fatigue (3) Acute on chronic anemia: Status: Chronic Code(s): D64.9 - Anemia, unspecified (4) Hypokalemia: Status: Acute Code(s): E87.6 - Hypokalemia Plan 82-year-old gentleman was directly admitted from [facility] for fatigue and diagnosed A-fib with RVR. 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 New onset A-fib with RVR: Patient is being admitted in PCU. Heart rate is better but is still in 110s. Twelve-lead EKG ordered. Denies palpitation or dizziness.TSH and echo ordered. Serial troponins are negative. Mild hypokalemia and hypophosphatemia. Potassium and phosphate getting replaced. Chronic hypotension on midodrine 5 mg twice daily increased to 10 mg 3 times daily. On metoprolol 25 mg twice daily. On IV heparin drip. 07/10: Heart rate controlled but is still A-fib. 2D echo shows bilateral atria enlarged, mild VT. Continue treatment. 07/11: Heart rate is controlled. Acute on chronic normochromic anemia probably due to chronic GI blood loss: Patient had 1 unit of PRBC transfusion before transfer here. Last hemoglobin 7.7. Patient hemoglobin has been chronically low since, Hb 6.12 May 2021 which required PRBC transfusion. On 06/17, it was about 10 g. FOBT ordered. GI is consulted. Patient on Protonix 40 mill IV every 12 hourly. As per family member's scope probably will not be able to traverse the tumor. 07/10: Discussed with GI. Patient's son said that they are not able to traverse the scope therefore probably doing EGD will be futile. Consult requested tomorrow prognosis of esophageal adenocarcinoma and anemia. 07/11: Discussed with the GI. Hemoglobin is stable. Right lower lobe pulmonary embolism present on admission: Patient was seen by vascular surgeon Dr. Prado. Options of IVC filter including risk benefits alternatives of anticoagulation discussed with the family, patient's daughter and son who lives in [place] discussed. Patient will decide on it. 07/11: Had detailed discussion with the patient and family and after talking with the vascular surgeon they agreed for IVC filter. Discussed with vascular surgeon. Discontinued heparin drip prior to the procedure. We will start Xarelto 10 mg daily at 6 hours after the procedure about 8 PM. 07/12: Right groin no hematoma or bruise. No tenderness. Dressing is dry. Chronic dysuria/urinary retention seems most likely due to BPH -Family reports abnormal ultrasound performed as an outpatient at the nursing facility. CT abdomen shows no solid renal masses but multiple left-sided parapelvic renal cysts. Enlargement of prostate. UA with reflex urine culture is ordered. 07/10: Flomax was recently prescribed but patient has not taken it. As per pharmacy could not give through PEG tube. Finasteride started. Urine culture pending. Patient is chronically urinary incontinent Generalized weakness/ acute on chronic fatigue due to stage IIIb distal esophageal adenocarcinoma: Patient has been chronically fatigued but has become more acute on chronic for last 2 to 3 days. Patient diagnosed with a stage IIIb distal esophageal adenocarcinoma and deemed not candidate for surgery. J-tube in place. Currently n.p.o. for possible EGD today. Patient follows radiation oncology and gets EBRT and medical oncology. Patient had chemotherapy in the past midline. 07/12: Patient patient wanted pleasant feeding or water for better quality of life. Dr. Noland and I agree. He is able to swallow most of saliva. Barium esophagram ordered. Bolus tube feed was started yesterday slowly 25 mL 5 times a day. Patient is tolerating well. Increase to 50 mill 5 times a day. Chronic hypotension -Continue midodrine but increase to 10 mg 3 times daily. Patient baseline BP is systolic 80-90. With midodrine currently it is 107/68 patient is holding up blood pressure. Anxiety/depression/insomnia -Continue home medications via PEG History of tobacco abuse -Remote -Encourage ongoing cessation Total time of the visit including total time spent in counseling or coordination of care, (more than 50% of the total time, spent in obtaining medical information from nurses and other ancillary care providers,explaining to the patient about labs, imaging, diagnosis and management of active complex medical conditions), discussion with vascular surgeon and GI, clinical course update to family medical record review, review of labs and imaging is 50 minutes. Echocardiogram 07/08/22 23:36 Interpretation Summary The left ventricular ejection fraction is 60 %. Unable to assess diastolic dysfunction due to arrhythmia. The left atrium is mildly enlarged. The right atrium is mildly enlarged. Mild tricuspid valve insufficiency. Aortic sclerosis, no stenosis. Mild (1+) aortic valve insufficiency. Abdomen/Pelvis CT 07/09/22 23:36 IMPRESSION: 1. Right lower lobe pulmonary emboli. 2. No solid renal masses are visualized. 3. Apparent multiple left-sided parapelvic renal cysts which appear new since the previous study. 4. Sequela of ventral herniorrhaphy. 5. Nonspecific hepatic nodule. 6. Possible bilateral basilar airspace disease and atelectasis. 7. Enlargement of the prostate. 8. Extensive atherosclerotic calcification of the abdominal aorta. Laboratory Results 07/09/22 15:04: APTT 62.5 H 07/09/22 20:49: APTT 77.8 H 07/10/22 03:20: APTT 75.2 H 07/10/22 03:20: WBC 2.2 L, RBC 2.47 L, Hgb 7.7 L, Hct 24.2 L, MCV 98.0 H, MCH 31.2, MCHC 31.8 L, RDW Std Deviation 70.7 H, RDW Coeff of Tiny 20.0 H, Plt Count 178, MPV 12.1 H, Immature Gran % (Auto) 0.900, Neut % (Auto) 65.2, Lymph % (Auto) 21.4, [place] % (Auto) 9.4, Eos % (Auto) 2.2, Baso % (Auto) 0.9, Absolute Neuts (auto) 1.5 L, Absolute Lymphs (auto) 0.48 L, Nucleated RBC % 0.9, Diff Path Review May foll, Hypochromasia 1+, Anisocytosis 2+, Macrocytosis 1+ 07/10/22 03:20: Sodium 142, Potassium 3.3 L, Chloride 112 H, Carbon Dioxide 26.0, Anion Gap 4 L, BUN 19 H, Creatinine 0.63 L, Estim Creat Clear Calc 51.88, Est GFR (MDRD) Af Amer 155, Est GFR (MDRD) Non-Af 128, BUN/Creatinine Ratio 30.0 H, Glucose 82, Calcium 8.3 L, Total Bilirubin 0.80, AST 16, ALT 13 L, Alkaline Phosphatase 91, Total Protein 4.8 L, Albumin 1.9 L, Globulin 2.9, Albumin/Globulin Ratio 0.7 L Allergies/Procedures Done in Hospital Allergies No Known Allergies Allergy (Unverified 06/14/22 09:22) Type of Care/Length of Stay Estimated LOS: More Than 30 Days Type of Care Needed: Intermediate Rehab Potential: Poor Prognosis: Fair Additional Orders/Day of Discharge Additional Orders: Hospice to follow at nursing facility Day of Discharge: 07/12/22 Dietary and Speech Recommendations Dietitian Recommendations/Changes: Chronically NPO; Recommend via PEG Pivot 1.5 goal rate of 200mL bolus 6x daily with 75mL H2O flush pre- and post-bolus to provide 1800 calories, 113 g protein, and 1800mL total fluid/day. Would start at 25mL bolus and increase by 25mL each bolus as tolerated until goal rate is achieved. Question if difficulty transitioning to bolus feeds at [facility] is r/t fiber content of Isosource, particularly if delayed gastric emptying is suspected (awaiting outpatient emptying study 07/15 per family and SNF notes). At this time, recommending change to Pivot 1.5 d/t lower fiber content. If not tolerated, may also need to consider a lower fat formula (at this facility- Vital HP or Vital AF 1.2) to improve tolerance. 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. Continue following diet. Discharge Orders/Prescriptions Prescriptions: New sennosides-docusate sodium [Stool Softener-Stimulant Laxat] 8.6-50 mg Tablet 2 tab G-tube BID PRN PRN (Reason: Constipation) Qty: 0 0RF albuterol sulfate 2.5 mg /3 mL (0.083 %) Solution For Nebulization 2.5 mg inhalation Q2H PRN PRN (Reason: SOB/Wheezing) Qty: 0 0RF metoprolol tartrate 25 mg Tablet 25 mg G-tube BID Qty: 0 0RF rivaroxaban 10 mg Tablet 10 mg PO DINNER 30 Days Qty: 30 0RF Pivot 1.5 Kishor 0.09 gram- 1.5 kcal/mL Liquid 50 ml G-tube 6X/DAY Qty: 0 0RF Rx Instructions: Start slowly 50 mL 5 times a day and then gradually titrate up as per tolerated to 200 mL 6 times a day lansoprazole [Prevacid SoluTab] 30 mg tablet,disintegrat, delay rel 30 mg feeding tube BID Qty: 60 0RF Continued lorazepam 0.5 mg tablet 0.5 mg feeding tube QHS Rx Instructions: VIA J TUBE ondansetron HCl 8 mg tablet 8 mg feeding tube Q8H oxycodone 5 mg capsule 5 mg feeding tube Q6H melatonin 5 mg capsule 5 mg feeding tube QHS Rx Instructions: VIA J TUBE tamsulosin 0.4 mg capsule 0.4 mg PO DAILY lorazepam 0.5 mg tablet 0.5 mg feeding tube Q12H PRN PRN (Reason: Anxiety) Rx Instructions: GIVE VIA J TUBE trazodone 50 mg tablet 50 mg feeding tube QHS Rx Instructions: GIVE VIA J TUBE metoclopramide HCl 10 mg tablet 10 mg feeding tube 3XD acetaminophen [Tylenol] 325 mg Tablet 650 mg feeding tube Q4H PRN (Reason: mild pain/temp >100) Changed midodrine 5 mg tablet 10 mg feeding tube 3XD 30 Days Qty: 0 0RF Rx Instructions: GIVE VIA J TUBE hold if SBP >120 Discontinued famotidine 40 mg/5 mL (8 mg/mL) suspension 5 ml feeding tube DAILY Rx Instructions: GIVE VIA J TUBE, IN THE MORNING Referrals / Follow Up: William Pickens DO [Med Staff - Active Staff] - Within 2 Weeks (for Palliative Radiation) Naveed Noland DO [Med Staff - Active Staff] - Within 1 Month Disposition Disposition (needs filled in before D/C Order can be placed): Hospice in [facility]
--- NOTE | 2022-07-12 12:21 | CHAPLAIN ---
Type of Pastoral Visit _x__ Initial Visit ___ Follow-up Visit ___ On-call Visit ___ General Patient Visit ___ Spiritual Assessment ___ Family Conference ___ Bereavement ___ Rapid Response ___ Code Blue ___ Other (describe below) Pastoral Care Referral From ___ Patient _x__ Family ___ Nurse ___ Physician ___ Performance Improvement Consultant ___ Underwriting Analyst ___ Other (describe below) Sacrament/Intervention ___ Active listening ___ Anointing ___ Episcopalian ___ Bereavement ___ Communion ___ Mcknena exploration ___ ___ Life review ___ Prayer ___ Reconciliation ___ Sacrament of Sick _x__ Supportive presence ___ Wedding ___ Other (describe below) Pastoral Comments patient is sleeping and a family member is at bedside; request of family to not disturb the patient due to he didn't sleep much last night; offer of support given for whenever patient is ready for the same and for the family member
--- NOTE | 2022-07-12 13:43 | CASEMGMT ---
VINICIUS received a call from Clover at [facility]. Clover was asking if patient is still going to be discharged today. VINICIUS told Clover that is what the physician said earlier when he rounded. Clover asked that VINICIUS let her know when patient is discharged. Gisselle HOLDER
--- NOTE | 2022-07-12 14:24 | PCM.DC.SUM ---
Providers Date of Admission: 07/08/22 Date of Discharge: 07/12/22 Consultations 07/08/22 23:36 Consult: Gastroenterology Routine Consulting Provider: [facility] Reason for Consult: possible GIB from esophageal mass EMERGENT Consult: No Notified: Yes Date Notified: 07/09/22 Time Notified: 07:12 Method of Notification: Text 07/09/22 13:43 Consult: Vascular Surgery Routine Consulting Provider: Bora Prado Reason for Consult: for IVC filter EMERGENT Consult: No Notified: Yes Date Notified: 07/09/22 Time Notified: 13:43 Method of Notification: Verbal Reason For Visit: NEW [place] AFIB WITH RVR Diagnosis Discharge Diagnosis (1) Atrial fibrillation with RVR: Status: Acute Code(s): I48.91 - Unspecified atrial fibrillation (2) Fatigue: Status: Acute Code(s): R53.83 - Other fatigue (3) Acute on chronic anemia: Status: Chronic Code(s): D64.9 - Anemia, unspecified (4) Hypokalemia: Status: Acute Code(s): E87.6 - Hypokalemia Plan 82-year-old gentleman was directly admitted from [facility] for fatigue and diagnosed A-fib with RVR. 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 New onset A-fib with RVR: Patient is being admitted in PCU. Heart rate is better but is still in 110s. Twelve-lead EKG ordered. Denies palpitation or dizziness.TSH and echo ordered. Serial troponins are negative. Mild hypokalemia and hypophosphatemia. Potassium and phosphate getting replaced. Chronic hypotension on midodrine 5 mg twice daily increased to 10 mg 3 times daily. On metoprolol 25 mg twice daily. On IV heparin drip. 07/10: Heart rate controlled but is still A-fib. 2D echo shows bilateral atria enlarged, mild WA. Continue treatment. 07/11: Heart rate is controlled. 07/12: Still in A-fib. Acute on chronic normochromic anemia probably due to chronic GI blood loss: Patient had 1 unit of PRBC transfusion before transfer here. Last hemoglobin 7.7. Patient hemoglobin has been chronically low since, Hb 6.12 May 2021 which required PRBC transfusion. On 06/17, it was about 10 g. FOBT ordered. GI is consulted. Patient on Protonix 40 mill IV every 12 hourly. As per family member's scope probably will not be able to traverse the tumor. 07/10: Discussed with GI. Patient's son said that they are not able to traverse the scope therefore probably doing EGD will be futile. Consult requested tomorrow prognosis of esophageal adenocarcinoma and anemia. 07/11: Discussed with the GI. Hemoglobin is stable. Right lower lobe pulmonary embolism present on admission: Patient was seen by vascular surgeon Dr. Prado. Options of IVC filter including risk benefits alternatives of anticoagulation discussed with the family, patient's daughter and son who lives in [place] discussed. Patient will decide on it. 07/11: Had detailed discussion with the patient and family and after talking with the vascular surgeon they agreed for IVC filter. Discussed with vascular surgeon. Discontinued heparin drip prior to the procedure. We will start Xarelto 10 mg daily at 6 hours after the procedure about 8 PM. 07/12: Right groin no hematoma or bruise. No tenderness. Dressing is dry. Chronic dysuria/urinary retention seems most likely due to BPH -Family reports abnormal ultrasound performed as an outpatient at the nursing facility. CT abdomen shows no solid renal masses but multiple left-sided parapelvic renal cysts. Enlargement of prostate. UA with reflex urine culture is ordered. 07/10: Flomax was recently prescribed but patient has not taken it. As per pharmacy could not give through PEG tube. Finasteride started. Urine culture pending. Patient is chronically urinary incontinent 07/12: Urine culture shows no growth. Patient on Flomax recently prescribed. Continued. Generalized weakness/ acute on chronic fatigue due to stage IIIb distal esophageal adenocarcinoma: Patient has been chronically fatigued but has become more acute on chronic for last 2 to 3 days. Patient diagnosed with a stage IIIb distal esophageal adenocarcinoma and deemed not candidate for surgery. J-tube in place. Currently n.p.o. for possible EGD today. Patient follows radiation oncology and gets EBRT and medical oncology. Patient had chemotherapy in the past midline. 07/12: Patient patient wanted pleasant feeding or water for better quality of life. Dr. Noland and I agree. He is able to swallow most of saliva. Bolus tube feed was started yesterday slowly 25 mL 5 times a day. Patient is tolerating well. Increase to 50 mill 5 times a day. As per the discussion with GI, patient's daughter and patient, placed in feeding and water intake will be permitted as a hospice care therefore patient can have esophagogram as an outpatient and patient's daughter agreed. Patient is discharged to SNF. Chronic hypotension -Continue midodrine but increase to 10 mg 3 times daily. Patient baseline BP is systolic 80-90. With midodrine currently it is 107/68 patient is holding up blood pressure. Anxiety/depression/insomnia -Continue home medications via PEG 07/12: Blood pressure also improved. Last BP 111/57. History of tobacco abuse -Remote -Encourage ongoing cessation Discharge medication reconciliation done. Discharge follow-up instructions completed. Discharge process discussed with the patient and all questions were answered to patient's satisfaction. Patient agreed for inpatient hospice care TO [facility]. Total time spent, exact 35 minutes on discharge meds reconciliation, examination, coordination of care with nurses and ancillary staff, review of imaging and blood test and discussion with the patient on follow-up instructions. Echocardiogram 07/08/22 23:36 Interpretation Summary The left ventricular ejection fraction is 60 %. Unable to assess diastolic dysfunction due to arrhythmia. The left atrium is mildly enlarged. The right atrium is mildly enlarged. Mild tricuspid valve insufficiency. Aortic sclerosis, no stenosis. Mild (1+) aortic valve insufficiency. Abdomen/Pelvis CT 07/09/22 23:36 IMPRESSION: 1. Right lower lobe pulmonary emboli. 2. No solid renal masses are visualized. 3. Apparent multiple left-sided parapelvic renal cysts which appear new since the previous study. 4. Sequela of ventral herniorrhaphy. 5. Nonspecific hepatic nodule. 6. Possible bilateral basilar airspace disease and atelectasis. 7. Enlargement of the prostate. 8. Extensive atherosclerotic calcification of the abdominal aorta. Laboratory Results 07/09/22 15:04: APTT 62.5 H 07/09/22 20:49: APTT 77.8 H 07/10/22 03:20: APTT 75.2 H 07/10/22 03:20: WBC 2.2 L, RBC 2.47 L, Hgb 7.7 L, Hct 24.2 L, MCV 98.0 H, MCH 31.2, MCHC 31.8 L, RDW Std Deviation 70.7 H, RDW Coeff of Tiny 20.0 H, Plt Count 178, MPV 12.1 H, Immature Gran % (Auto) 0.900, Neut % (Auto) 65.2, Lymph % (Auto) 21.4, Johnston % (Auto) 9.4, Eos % (Auto) 2.2, Baso % (Auto) 0.9, Absolute Neuts (auto) 1.5 L, Absolute Lymphs (auto) 0.48 L, Nucleated RBC % 0.9, Diff Path Review May foll, Hypochromasia 1+, Anisocytosis 2+, Macrocytosis 1+ 07/10/22 03:20: Sodium 142, Potassium 3.3 L, Chloride 112 H, Carbon Dioxide 26.0, Anion Gap 4 L, BUN 19 H, Creatinine 0.63 L, Estim Creat Clear Calc 51.88, Est GFR (MDRD) Af Amer 155, Est GFR (MDRD) Non-Af 128, BUN/Creatinine Ratio 30.0 H, Glucose 82, Calcium 8.3 L, Total Bilirubin 0.80, AST 16, ALT 13 L, Alkaline Phosphatase 91, Total Protein 4.8 L, Albumin 1.9 L, Globulin 2.9, Albumin/Globulin Ratio 0.7 L Medications at Discharge Home Medications lorazepam 0.5 mg tablet 0.5 mg feeding tube QHS Check with primary doctor 04/14/22 ondansetron HCl 8 mg tablet 8 mg feeding tube Q8H nausea 04/14/22 oxycodone 5 mg capsule 5 mg feeding tube Q6H moderate/severe pain 04/14/22 melatonin 5 mg capsule 5 mg feeding tube QHS Check with primary doctor 04/19/22 lorazepam 0.5 mg tablet 0.5 mg feeding tube Q12H PRN PRN Anxiety 07/08/22 metoclopramide HCl 10 mg tablet 10 mg feeding tube 3XD Check with primary doctor 07/08/22 tamsulosin 0.4 mg capsule 0.4 mg PO DAILY Check with primary doctor 07/08/22 trazodone 50 mg tablet 50 mg feeding tube QHS Check with primary doctor 07/08/22 acetaminophen 325 mg tablet (Tylenol) 650 mg feeding tube Q4H PRN mild pain/temp >100 07/09/22 albuterol sulfate 2.5 mg/3 mL (0.083 %) solution for nebulization 2.5 mg (3 mL) inhalation Q2H PRN PRN SOB/Wheezing #0 mL 07/12/22 lansoprazole 30 mg delayed release,disintegrating tablet (Prevacid SoluTab) 30 mg feeding tube BID #60 tabs 07/12/22 metoprolol tartrate 25 mg tablet 25 mg G-tube BID #0 tabs 07/12/22 midodrine 5 mg tablet 10 mg feeding tube 3XD Check with primary doctor 30 days #0 tabs 07/12/22 nut.tx.comp. immune systm,reg 0.09 gram-1.5 kcal/mL liquid for tube feed (Pivot 1.5 Kishor) 50 ml G-tube 6X/DAY #0 mL 07/12/22 rivaroxaban 10 mg tablet 10 mg PO DINNER 30 days #30 tabs 07/12/22 sennosides 8.6 mg-docusate sodium 50 mg tablet (Stool Softener-Stimulant Laxative) 2 tab G-tube BID PRN PRN Constipation #0 tabs 07/12/22 Physical Exam Narrative Seen and examined. A-fib is controlled. Slight improvement in hemoglobin. Shortness of breath is better. Dyspnea on mild exertion. Hemoglobin improving 8.3. Physical exam General: Alert, Oriented x3, Cooperative, BMI 21.0. Lost 50 pounds since January 2022 HEENT: Atraumatic, PERRLA, EOMI, Normocephalic Oral: Oral mucosa moist. No Gingival or Mucosal Lesions/ Ulcerations Neck: Supple, No JVD, Negative Carotid Bruits Lungs: Air entry diminished in bilateral lung bases. No crepitation/rhonchi. Shortness of breath better. [place]. Cardiovascular: Irregular rhythm, A-fib, normal S1, Normal S2, No murmurs Abdomen: Bowel Sounds Present, Soft, Non Tender, Non-Distended : No renal angle tenderness. No suprapubic tenderness. Extremities: No edema, Capillary Refill Less than 3 Seconds Skin: No rashes, No breakdown Musculoskeletal: Moderate muscle atrophy of thighs and upper extremities. Muscle strength 4/5 at major joints. No Tenderness to Palpation of Joints or Extremities Neurological: Cranial nerves II-XII grossly intact, DTR 2+/4 and Symmetrical, Neuro grossly intact Psych/Mental Status: Flat affect. Medical Records Data Medical Nutrition Assessment Dietitian: Malnutrition Criteria Met Start: 07/09/22 12:22 Freq: Status: Active Protocol: Document 07/12/22 14:16 AG (Rec: 07/12/22 14:16 AG [id number]) Nutrition Malnutrition Evidence of Malnutrition Exists Yes Malnutrition (severe): Chronic Evidenced By Weight Loss (Severe),Physical Changes (Severe) Intake Problem Inadequate Enteral Nutrition Infusion Etiology related to GI intolerance Signs/Symptoms as evidenced by estimated EN intake meeting <75% of estimated energy needs x 2-3 weeks Status Active Problem Clinical Problem Chronic Disease or Condition Related Malnutrition Etiology severe chronic malnutrition related to inadequate energy intake w/ increased energy needs d/t esophageal adenocarcinoma Signs/Symptoms as evidenced by unitentional wt loss of 73.4#/33% < 1 year; Severe muscle wasting/fat loss evident per physical exam in orbital, temporal, clavicle, acromion areas. Status Active Problem Recommendation Dietitian Recommendations/Changes Regular diet as tolerated for pleasure feeds; Will continue via PEG Pivot 1. 5 goal rate of 200mL bolus 6x daily with 75mL H2O flush pre- and post-bolus to provide 1800 calories, 113 g protein, and 1800mL total fluid/day. Would start at 25mL bolus and increase by 25mL each bolus as tolerated until goal rate is achieved. Weight / BMI Weight Weight: 145 lb 11.609 oz Body Mass Index (BMI) 20.9 ABG / Lab / Microbiology Data Result Diagrams: 07/12/22 06:12 07/12/22 06:12 Laboratory: Laboratory Results - last 24 hr 07/09/22 09:00: Diff Path Review Reviewed 07/10/22 03:20: Diff Path Review Reviewed 07/12/22 06:12: WBC 2.3 L, RBC 2.70 L, Hgb 8.3 L, Hct 26.3 L, MCV 97.4 H, MCH 30.7, MCHC 31.6 L, RDW Std Deviation 69.6 H, RDW Coeff of Tiny 19.6 H, Plt Count 169, MPV 10.5, Immature Gran % (Auto) 1.700 H, Neut % (Auto) 70.9 H, Lymph % (Auto) 14.8 L, Johnston % (Auto) 10.0, Eos % (Auto) 2.2, Baso % (Auto) 0.4, Absolute Neuts (auto) 1.6 L, Absolute Lymphs (auto) 0.34 L, Nucleated RBC % 0, Differential Comment SCANNED, Diff Path Review May foll, Anisocytosis 3+ 07/12/22 06:12: Sodium 140, Potassium 3.3 L, Chloride 110 H, Carbon Dioxide 28.0, Anion Gap 2 L, BUN 14, Creatinine 0.70, Estim Creat Clear Calc 51.41, Est GFR (MDRD) Af Amer 139, Est GFR (MDRD) Non-Af 115, BUN/Creatinine Ratio 20.1 H, Glucose 95, Calcium 8.5, Magnesium 2.2 07/12/22 06:12: Phosphorus 2.7 Microbiology: Microbiology 07/09/22 00:56 Urine, Clean Catch Urine Culture - Final Culture exhibits no growth. 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 Continue following diet. Pt is going to [facility] with [facility] Discharge Orders/Prescriptions Prescriptions: New sennosides-docusate sodium [Stool Softener-Stimulant Laxat] 8.6-50 mg Tablet 2 tab G-tube BID PRN PRN (Reason: Constipation) Qty: 0 0RF albuterol sulfate 2.5 mg /3 mL (0.083 %) Solution For Nebulization 2.5 mg inhalation Q2H PRN PRN (Reason: SOB/Wheezing) Qty: 0 0RF metoprolol tartrate 25 mg Tablet 25 mg G-tube BID Qty: 0 0RF rivaroxaban 10 mg Tablet 10 mg PO DINNER 30 Days Qty: 30 0RF Pivot 1.5 Kishor 0.09 gram- 1.5 kcal/mL Liquid 50 ml G-tube 6X/DAY Qty: 0 0RF Rx Instructions: Start slowly 50 mL 5 times a day and then gradually titrate up as per tolerated to 200 mL 6 times a day lansoprazole [Prevacid SoluTab] 30 mg tablet,disintegrat, delay rel 30 mg feeding tube BID Qty: 60 0RF Continued lorazepam 0.5 mg tablet 0.5 mg feeding tube QHS Rx Instructions: VIA J TUBE ondansetron HCl 8 mg tablet 8 mg feeding tube Q8H oxycodone 5 mg capsule 5 mg feeding tube Q6H melatonin 5 mg capsule 5 mg feeding tube QHS Rx Instructions: VIA J TUBE tamsulosin 0.4 mg capsule 0.4 mg PO DAILY lorazepam 0.5 mg tablet 0.5 mg feeding tube Q12H PRN PRN (Reason: Anxiety) Rx Instructions: GIVE VIA J TUBE trazodone 50 mg tablet 50 mg feeding tube QHS Rx Instructions: GIVE VIA J TUBE metoclopramide HCl 10 mg tablet 10 mg feeding tube 3XD acetaminophen [Tylenol] 325 mg Tablet 650 mg feeding tube Q4H PRN (Reason: mild pain/temp >100) Changed midodrine 5 mg tablet 10 mg feeding tube 3XD 30 Days Qty: 0 0RF Rx Instructions: GIVE VIA J TUBE hold if SBP >120 Discontinued famotidine 40 mg/5 mL (8 mg/mL) suspension 5 ml feeding tube DAILY Rx Instructions: GIVE VIA J TUBE, IN THE MORNING Referrals / Follow Up: Naveed Noland DO [Med Staff - Active Staff] - Within 1 Month William Pickens DO [Med Staff - Active Staff] - Within 2 Weeks (for Palliative Radiation) Disposition Disposition (needs filled in before D/C Order can be placed): [facility] Charges/Coding Visit Charges Inpatient E&M: 00485 Disch Hosp >30min
--- NOTE | 2022-07-12 14:57 | CASEMGMT ---
Patient is ready for discharge back to [facility]. VINICIUS called [facility] and arranged for patient to get picked up at 4p via wheelchair van. VINICIUS sent orders, COVID test, and pick pulling machine operator [facility] to [facility] VINICIUS also sent d/c orders to [facility]. VINICIUS called Clover at [facility] and notified her of pick pulling machine operator time as well. VINICIUS notified RN, patient, and his daughter. Plan: d/c back to [facility] on [facility] Gisselle Castro MD PEDIATRIC ALLERGIST GALLO
[2022-07-12 15:00] VITALS: BP 111/57; PULSE 82; RESP 18; TEMP 36.8; O2SAT 100
--- NOTE | 2022-07-12 15:17 | PHA.DC.MR ---
Pharmacy Service has performed discharge medication reconciliation for this patient. The patient's discharge medication list was reviewed for discrepancies and discrepancies were resolved. Home Medications lorazepam 0.5 mg tablet 0.5 mg feeding tube QHS Check with primary doctor 04/14/22 ondansetron HCl 8 mg tablet 8 mg feeding tube Q8H nausea 04/14/22 oxycodone 5 mg capsule 5 mg feeding tube Q6H moderate/severe pain 04/14/22 melatonin 5 mg capsule 5 mg feeding tube QHS Check with primary doctor 04/19/22 lorazepam 0.5 mg tablet 0.5 mg feeding tube Q12H PRN PRN Anxiety 07/08/22 metoclopramide HCl 10 mg tablet 10 mg feeding tube 3XD Check with primary doctor 07/08/22 tamsulosin 0.4 mg capsule 0.4 mg PO DAILY Check with primary doctor 07/08/22 trazodone 50 mg tablet 50 mg feeding tube QHS Check with primary doctor 07/08/22 acetaminophen 325 mg tablet (Tylenol) 650 mg feeding tube Q4H PRN mild pain/temp >100 07/09/22 albuterol sulfate 2.5 mg/3 mL (0.083 %) solution for nebulization 2.5 mg (3 mL) inhalation Q2H PRN PRN SOB/Wheezing #0 mL 07/12/22 lansoprazole 30 mg delayed release,disintegrating tablet (Prevacid SoluTab) 30 mg feeding tube BID #60 tabs 07/12/22 metoprolol tartrate 25 mg tablet 25 mg G-tube BID #0 tabs 07/12/22 midodrine 5 mg tablet 10 mg feeding tube 3XD Check with primary doctor 30 days #0 tabs 07/12/22 nut.tx.comp. immune systm,reg 0.09 gram-1.5 kcal/mL liquid for tube feed (Pivot 1.5 Kishor) 50 ml G-tube 6X/DAY #0 mL 07/12/22 rivaroxaban 10 mg tablet 10 mg PO DINNER 30 days #30 tabs 07/12/22 sennosides 8.6 mg-docusate sodium 50 mg tablet (Stool Softener-Stimulant Laxative) 2 tab G-tube BID PRN PRN Constipation #0 tabs 07/12/22
[2022-07-12] MEDS: Potassium Chloride Oral Soln 20 MEQ/15 ML UDC 40 MEQ GT (15:37)
--- NOTE | 2022-07-12 15:40 | CASEMGMT ---
VINICIUS notified Clover at [facility] and Crystal at [facility] that Physicians will be here closer to 5p now. Gisselle Castro MOVIE EDITOR RETAIL CASHIER ASSOCIATE
--- NOTE | 2022-07-12 15:43 | CASEMGMT ---
Crystal at [facility] said patient's room will change to 113. SW notified patient and his daughter. Gisselle Castro MAGNETIC GRINDER OPERATOR GALLO
--- NOTE | 2022-07-12 16:25 | NURSING ---
Addendum entered by Lisbeth Elias 07/12/22 17:23: Pharmacy was unable to supply the 4 bottles of pivot becausetheir supplier is unable to refill their stock. This RN spoke with Justin dietitian, about substituting isosource which [facility] stocks. She said that would not be a problem and that Shahla, another dietitian spoke at length with the [facility] dietition today about acceptable substitutions should they not be able to get pivot on hand immediately. Clover updated and voiced understanding. Original Note: Clover from [facility] called to inform us that [facility] does not carry pivot tube feeding. Order will need to be changed to Isosource or 2-3 days worth of pivot will need to be sent with patient while they order more. This RN called pharmacy and they will send 4 bottles of pivot to cover the lag time while [facility] orders more. Clover updated and expressed thanks.
--- NOTE | 2022-07-12 16:56 | PCM.PROGNOTE ---
Subjective Subjective Patient states that he feels about the same. He denies any chest pain or shortness of breath. He is not having any problems with the secretions at this time. He is scheduled to be seen by hospice services. Objective Data Objective Data Vital Signs: Vital Signs Temp Pulse Resp BP Pulse Ox O2 Del Method 98.2 F 82 18 111/57 L 100 Room Air 07/12/22 15:00 07/12/22 15:00 07/12/22 15:00 07/12/22 15:00 07/12/22 15:00 07/12/22 15:00 Oxygen Delivery Method Room Air Weight: 145 lb 11.609 oz Body Mass Index (BMI) 20.9 Intake & Output: Intake and Output for Last 24 Hours 07/10/22 07/11/22 07/12/22 23:59 23:59 23:59 Intake Total 1683.83 / 1683.83 3273.00 / 3448.00 285 / 285 Output Total 1325 / 1325 1000 / 1300 1170 / 1170 Balance 358.83 / 358.83 2273.00 / 2148.00 -885 / -885 Medical Nutrition Assessment Dietitian: Malnutrition Criteria Met Start: 07/09/22 12:22 Freq: Status: Active Protocol: Document 07/12/22 14:16 AG (Rec: 07/12/22 14:16 [id number]) Nutrition Malnutrition Evidence of Malnutrition Exists Yes Malnutrition (severe): Chronic Evidenced By Weight Loss (Severe),Physical Changes (Severe) Intake Problem Inadequate Enteral Nutrition Infusion Etiology related to GI intolerance Signs/Symptoms as evidenced by estimated EN intake meeting <75% of estimated energy needs x 2-3 weeks Status Active Problem Clinical Problem Chronic Disease or Condition Related Malnutrition Etiology severe chronic malnutrition related to inadequate energy intake w/ increased energy needs d/t esophageal adenocarcinoma Signs/Symptoms as evidenced by unitentional wt loss of 73.4#/33% < 1 year; Severe muscle wasting/fat loss evident per physical exam in orbital, temporal, clavicle, acromion areas. Status Active Problem Recommendation Dietitian Recommendations/Changes Regular diet as tolerated for pleasure feeds; Will continue via PEG Pivot 1. 5 goal rate of 200mL bolus 6x daily with 75mL H2O flush pre- and post-bolus to provide 1800 calories, 113 g protein, and 1800mL total fluid/day. Would start at 25mL bolus and increase by 25mL each bolus as tolerated until goal rate is achieved. Lab / Micro Data Result Diagrams: 07/12/22 06:12 07/12/22 06:12 Labs: Laboratory Results - last 24 hr 07/12/22 06:12: WBC 2.3 L, RBC 2.70 L, Hgb 8.3 L, Hct 26.3 L, MCV 97.4 H, MCH 30.7, MCHC 31.6 L, RDW Std Deviation 69.6 H, RDW Coeff of Tiny 19.6 H, Plt Count 169, MPV 10.5, Immature Gran % (Auto) 1.700 H, Neut % (Auto) 70.9 H, Lymph % (Auto) 14.8 L, [place] % (Auto) 10.0, Eos % (Auto) 2.2, Baso % (Auto) 0.4, Absolute Neuts (auto) 1.6 L, Absolute Lymphs (auto) 0.34 L, Nucleated RBC % 0, Differential Comment SCANNED, Diff Path Review May foll, Anisocytosis 3+ 07/12/22 06:12: Sodium 140, Potassium 3.3 L, Chloride 110 H, Carbon Dioxide 28.0, Anion Gap 2 L, BUN 14, Creatinine 0.70, Estim Creat Clear Calc 51.41, Est GFR (MDRD) Af Amer 139, Est GFR (MDRD) Non-Af 115, BUN/Creatinine Ratio 20.1 H, Glucose 95, Calcium 8.5, Magnesium 2.2 07/12/22 06:12: Phosphorus 2.7 Micro: Microbiology 07/12/22 14:00 Nasal Secretion SARS-CoV-2 Antigen (Rapid) - Final 07/09/22 00:56 Urine, Clean Catch Urine Culture - Final Culture exhibits no growth. Physical Exam Narrative Seen and examined. A-fib is controlled. Slight improvement in hemoglobin. Shortness of breath is better. Dyspnea on mild exertion. Physical exam General: Alert, Oriented x3, Cooperative, BMI 21.0. Lost 50 pounds since January 2022 HEENT: Atraumatic, PERRLA, EOMI, Normocephalic Oral: Oral mucosa moist. No Gingival or Mucosal Lesions/ Ulcerations Neck: Supple, No JVD, Negative Carotid Bruits Lungs: Air entry diminished in bilateral lung bases. No crepitation/rhonchi. Shortness of breath better. [place]. Cardiovascular: Regular rate, Regular Rhythm, Normal S1, Normal S2, No murmurs Abdomen: Bowel Sounds Present, Soft, Non Tender, Non-Distended : No renal angle tenderness. No suprapubic tenderness. Extremities: No edema, Capillary Refill Less than 3 Seconds Skin: No rashes, No breakdown Musculoskeletal: Moderate muscle atrophy of thighs and upper extremities. Muscle strength 4/5 at major joints. No Tenderness to Palpation of Joints or Extremities Neurological: Cranial nerves II-XII grossly intact, DTR 2+/4 and Symmetrical, Neuro grossly intact Psych/Mental Status: Flat affect. Assessment & Plan Assessment/Plan (1) Atrial fibrillation with RVR: (2) Fatigue: (3) Acute on chronic anemia: (4) Hypokalemia: PLAN: Plan New onset A-fib with RVR -No anticoagulation at this point due to large esophageal mass and possible bleeding with decreased hemoglobin Acute on chronic anemia -His hemoglobin seems to be stable at 7.8 after transfusion of packed red blood cells -Cycle hemoglobin -continue Protonix 40 mg IV twice daily -N.p.o. and no tube feed--> okay for enteral medications Stage IIIb distal esophageal adenocarcinoma -Patient following with radiation oncology and medical oncology -Deemed not an appropriate surgical candidate -J tube in place for enteral feeds -It is likely that he is having some bleeding at the site of his esophageal tumor. Since his hemoglobin is stable I think the risk versus benefit to perform a upper endoscopy and to him would not benefit him at this time. If his hemoglobin decreases then there has to be decision whether the the patient and the patient's family want to take the risk of him undergoing endoscopic procedure that may do harm. -Patient agreed to have barium esophagram to see the extent of the stricture. He may benefit from an esophageal stent. The goal for him is to be able to tolerate some food orally. Further recommendations to follow. Charges/Coding Visit Charges Inpatient E&M: 62589 [facility] L[facility]
[2022-07-13 10:46] LABS: Pathologist Review Reviewed
[2022-07-13 10:53] LABS: Pathologist Review Reviewed
== END 2022-07-12 17:22 | disposition hospice, inpatient (51) | DRG 175 ==
PROVIDERS: Admitting Provider Internal Medicine; Visit Provider Internal Medicine
DX: I26.99 Other pulmonary embolism without acute cor pulmonale (principal); E43 Unspecified severe protein-calorie malnutrition; C15.5 Malignant neoplasm of lower third of esophagus; E83.39 Other disorders of phosphorus metabolism; D50.0 Iron deficiency anemia secondary to blood loss (chronic); E87.6 Hypokalemia; I95.89 Other hypotension; I48.91 Unspecified atrial fibrillation; Z93.1 Gastrostomy status; F41.9 Anxiety disorder, unspecified; F32.A Depression, unspecified; G47.00 Insomnia, unspecified; N40.1 Benign prostatic hyperplasia with lower urinary tract symptoms; R33.8 Other retention of urine; R32 Unspecified urinary incontinence; R30.0 Dysuria; Z68.21 Body mass index [BMI] 21.0-21.9, adult; Z90.49 Acquired absence of other specified parts of digestive tract; Z79.899 Other long term (current) drug therapy; Z86.16 Personal history of COVID-19; Z87.891 Personal history of nicotine dependence
CPT/HCPCS: 36415; 37191; 74177; 76937; 80048; 80053; 81001; 83735; 84100; 84443; 84484; 85018; 85025; 85730; 87086; 87426; 93005; 93306; 94668; 97110; 97163; 97165; 97530; 97535; 97802; 97803; 99152; 99153; 99252; J7040; J7050; Q9967; A4216; C1769; C1880; G0463; J2405